=== PATIENT | female | born 1970 | race Caucasian/White ===

== ENCOUNTER → 2017-09-29 17:51 | Outpatient (CLI) | payer OTHER, SELFPAY ==
--- NOTE | 2017-09-29 17:50 | RAD_ITS ---
STUDY: X-RAY CHEST REASON FOR EXAM: Female, 46 years old. Cough TECHNIQUE: Frontal and lateral views COMPARISON: July 12, 2011 FINDINGS: The lungs are clear and expanded. There is no demonstrated pleural abnormality. Normal size heart. Normal mediastinum and vinh. Normal visualized pulmonary arteries. Normal visualized aortic arch and descending thoracic aorta. Normal visualized thoracic spine. Normal visualized ribs, clavicles, and shoulders. There is no demonstrated abnormality of the visualized soft tissue structures of the upper abdomen. RAD/Chest PA and Lateral IMPRESSION: Normal x-ray examination of the chest. Electronically Signed: John Hickey DO at 18:11 EST Tel [phone], Service support ,
== END ==
PROVIDERS: Family Provider Family Medicine; PCP Family Medicine; Visit Provider Family Medicine
DX: R05 Cough (principal)
CPT/HCPCS: 71046

== ENCOUNTER 2018-01-12 05:36 | Day surgery (SDC) | payer OTHER, SELFPAY ==
[2018-01-06 11:25] LABS: Internal QC Validated? YES +Cl - CLEAR BKGD
[2018-01-06 11:27] LABS: Hematocrit 35.4 % (37-47); Hemoglobin 10.9 g/dl (12.0-15.0); Mean Corp Hgb Conc 30.8 g/gl (32-36); Mean Corpuscular Hgb 23.9 pg (27.0-32.0); Mean Corpuscular Volume 77.5 fL (81-99); Mean Platelet Vol. 11.5 fl (6.2-12.0); Platelet Count 282 K/mm3 (150-450); RBC Distribution Width CV 17.4 % (11.6-14.6); Red Blood Count 4.57 M/mm3 (4.2-5.4); White Blood Count 7.8 K/mm3 (4.4-11.0)
[2018-01-06 11:30] LABS: Pregnancy, Urine Negative Negative
[2018-01-06 11:34] LABS: Scan Indicated on CBC? Y/N NO
[2018-01-12] VITALS (19 sets, daily range): BP systolic 79–116; BP diastolic 48–63; PULSE 56–66; RESP 14–18; TEMP 36–37; O2SAT 87–100; BMI 33.4
--- NOTE | 2018-01-12 | HYST_PTH ---
PATIENT: FISH VELASQUEZ LOC: [facility] [place] U#:[id number] AGE/SX: 47/F ROOM: RE01/12/[address]: Dr. Celia Kim MD : 1970 BED: DIS: 01/13/2018 SPEC #: [id number] RECD: 01/12/18 13:31 STATUS: EBONY STEVE #: [id number] JENNIFFER: 01/12/18 00:[address]: Celia Kim DEPT: SURGICAL PATHOLOGY RECD BY: Jesse Campo ENTERED: 01/12/18 13:31 SP TYPE: HYSTERECT OTHR DR: Dr. Aria Pina DO Tissues: Uterus, NOS Procedures: Surgery Specimen Level V HEADER OPERATION: Hysterectomy, lap assisted vaginal, bilateral salpingectomy PRE-OP DIAGNOSIS: Intramural uterine fibroid; menorrhagia; failed endometrial ablation TISSUE SUBMITTED: Cervix, uterus and bilateral tubes MICROSCOPIC DIAGNOSIS Cervix, uterus and bilateral fallopian tubes, vaginal hysterectomy and bilateral salpingectomy: Cervix ? focal cystic changes. Endometrium ? proliferative endometrium. - Focal fibrosis consistent with previous endometrial ablation. Myometrium ? a leiomyoma (10 cm in diameter). Bilateral fallopian tubes - no pathologic diagnosis. SJ:blas 01/13/18 MICROSCOPIC DESCRIPTION Slides are reviewed. GROSS DESCRIPTION Received in fixative is one container labeled with the patient's name and designated uterus, cervix, bilateral tubes. The specimen consists of a previously opened hysterectomy specimen consisting of uterus with cervix and detached pieces of bilateral fallopian tubes. The uterus with cervix and a small detached piece of nodular tissue weighs in aggregate 654 gm. The uterus with cervix measures 15 x 15 x 8 cm. The serosal surface is faye, glistening with numerous instrumentation roy. The uterus is distorted because of the presence of nodular mass and cannot be oriented as of anterior and posterior surface. The ectocervical mucosa is unremarkable. The shape of external os cannot be determined due to previously opened nature of the specimen. The endocervical canal measures 4 cm in length and the endocervical mucosa is faye, glistening and unremarkable. The endometrial cavity is compressed to one side measures 5 cm in length and 3 cm in width. Sections of the uterine wall reveal a large nodular mass at the fundus measuring 10 cm in diameter. Sections of this mass reveal faye whorled cut surfaces without areas of hemorrhage, necrosis or cystic degeneration. The uninvolved uterine wall measures up to 3.5 cm in thickness. A smaller detached piece of nodular tissue measures 3 x 3 x 1 cm. It appears to be a portion of the larger nodular mass. The fallopian tubes are not identified as right or left. One of the fallopian tubes measure 5 cm in length and 0.5 cm in diameter. The fimbrial end is identified. Sections reveal unremarkable cut surfaces. The second fallopian tube measures 1.5 cm in length and 0.5 cm in diameter. The fimbrial end is identified. Sections do not reveal any mass lesion. Senior Technologist sections are submitted in 11 cassettes as follows: 1 & 2 - cervix, 3-6 - uterine wall including endometrium, 7-9 ? nodular mass, 10 ? one fallopian tube, 11 ? other fallopian tube, entirely submitted. / CYNTHIA:blas 01/12/18 TC:1 CPT: 75622
[2018-01-12 06:00] LABS: Internal QC Validated? YES +Cl - CLEAR BKGD; Pregnancy, Urine Negative Negative
[2018-01-12] MEDS: Phenazopyridine 95 MG Tablet 190 MG PO (06:31)
[2018-01-12] MEDS: Gabapentin 600 MG Tablet PO (06:32)
[2018-01-12] MEDS: Lubricating Jelly 60 GM Tube 30 GM TOPICAL (06:59)
[2018-01-12] MEDS: Celecoxib 200 MG Capsule 400 MG PO (07:15)
[2018-01-12] MEDS: Acetaminophen 500 MG Tablet 1000 MG PO ×3 (07:15→21:37)
[2018-01-12] MEDS: Clindamycin 900 MG/50 ML BAG 75 MG IV (07:44)
[2018-01-12] MEDS: Bupivacaine Mpf 0.5% 30 ML VIAL (07:54)
[2018-01-12] MEDS: Ketorolac 30 MG/ML Syringe IV ×3 (10:15→23:30)
--- NOTE | 2018-01-12 10:25 | OP.PCM_ITS ---
Report of Operation Date of Procedure: 01/12/18 Pre-Operative Diagnosis: menorrhagia, intramural uterine fibroid, chronic blood loss fe def. anemia Post-Operative Diagnosis: same Surgery/Procedure Performed:: LAVH, bilateral salpingectomy, USLF and cystoscopy Description of Surgical Findings:: very enlarged boggy 682 gm uterus, normal cervix and vagina, normal ovaries, tubes with evidence of previous tubal supervisor force adjustment: Roxana Jaramillo Type of Anesthesia:: General Anesthesiologist: Natalie Hardwick Special Medications: benedryl IV Specimen's removed: uterus, cerivix and tubes Drains: melgar Estimated Blood Loss (mL): 750cc Fluids Replaced: 1500cc LR Description of Procedure: The patient was taken to the operating room where she was prepped and draped in the normal sterile fashion in the dorsal lithotomy position. Her arms were tucked bilaterally and padded. She is placed in a neurologically safe and neutral position. A weighted speculum was placed in the vagina and the anterior lip of the cervix was grasped with a tenaculum clamp. The Kanika uterine manipulator was placed in the remainder the vaginal instruments were removed. A Melgar catheter was placed to straight drain. Attention was turned to the abdomen. All port sites were infiltrated with 0.5% Marcaine before skin incisions were made. A 5 mm intraumbilical incision was made. The anterior abdominal wall was tented up with 2 towel clamps while a 5 mm blade less trocar and sleeve were inserted with the interview trocar without difficulty.. Intraperitoneal placement was confirmed with the laparoscope. The pneumoperitoneum was created and the underlying abdominal contents were intact. The patient was placed in Trendelenburg. 5mm right and left lower quadrant ports were placed under direct visualization lateral to the inferior epigastric vessels. The bowel was swept away and the above findings were noted. It could not be manipulated due to its heaviness and width. We placed another left lateral trocar under direct visualization and used a tenaculum to help manipulate the uterus. We used a 5 mm balloon port in the umbilical incision to help seal the pneumoperitoneum. The left ovary and utero-ovarian ligament cannot be well visualized due to the uterus laying on top of the ovary and difficulty with manipulation. However, the right ovary and utero-ovarian ligament could be accessed. The right ligament was clamped sealed and transected with the LigaSure device the right utero-ovarian ligament was clamped sealed and transected with the LigaSure device and hemostasis was noted. Lateral flap was dissected down somewhat with the LigaSure device and the decision was made to try to remove the rest the uterus vaginally and if we are unable to proceed that way we have to convert to abdominal hysterectomy. The vaginal epithelium around the cervix was injected with 1% Xylocaine with dilute epinephrine solution. An incision was made around the entire cervix and the vaginal epithelium was dissected back with blunt sharp dissection. The anterior cul-de-sac was entered sharply and the posterior cul-de-sac was entered sharply. The posterior TM was secured to the posterior vaginal cuff. Uterosacral ligaments were clamped, transected and suture ligated. The lower portion of the cardinal ligaments was clamped, transected and suture ligated. The rest of the cardinal ligaments containing the peritoneum and the uterine arteries were clamped, transected and suture ligated. The right side I was able to reach my finger around and clamped the remaining portion of the broad ligament any clamp and the uterus was free from the right pelvic sidewall. This pedicle was suture ligated. Point the left utero-ovarian ligament with the left pedicle. Decision was made to bivalve the uterus. Most of the blood loss came from backbleeding during the vaginal hysterectomy portion of the galdino. The uterus was very large and boggy. The uterus was bivalved up to the fundus at which point the site was brought out through the vagina and then we are able to bring the fundus of the uterus out and bring the entire uterus out to the utero-ovarian ligament on the left side. It was then clamped, transected and suture-ligated and excellent hemostasis of the pedicles was noted. There is some bleeding from the vaginal cuff. Decision was then made to proceed with the uterosacral ligament fixation. The bowel was packed away and the Breisky retractors were used to retract the abdominal contents and rectum. Uterosacral ligament was identified and grasped with an Allis clamp. PDS suture was placed through the anterior vaginal cuff through the ligament and through the posterior vaginal cuff in the right vaginal corner. 2 O Prolene suture was placed under the vaginal cuff just medial to the PDS suture but not through the entire vaginal epithelium was then placed through the uterosacral ligament slightly more cephalad than the previous stitch and then out through the posterior vaginal cuff but again was left epithelium so was not through the full-thickness. Another 2-0 PDS suture was placed through the more midline portion of the vaginal cuff through the most superior portion of the uterosacral ligament that I could access to the posterior vaginal cuff near the midline. The same procedure was performed on the contralateral side. A cystoscopy was then performed. Both ureteral jets were identified both with and without tension on the uterosacral ligament fixation sutures. The bladder was intact and no abnormalities were noted. Melgar catheter was replaced and the uterosacral ligament fixation sutures were tied down. Some [id number] interrupted sutures were used to cover over the Prolene sutures and to close the midline of the vaginal cuff. Excellent support was noted. There is no significant cystocele at this time the decision was made that a anterior repair would not be indicated at this time. Attention was turned back to the abdomen and the pneumoperitoneum was re-created. The pedicles were all intact and hemostatic. The Melgar was left to straight drain. The vaginal sweep was completed by me. All sponge lap and needle counts were correct. Patient was awakened and taken to theher recovery room in stable condition. Grafts/Implants Used: none - Complications none - Admit VTE Documentation VTE Present on Admission: No VTE Mechan Device Prophylaxis: SCD's VTE Pharm Prophylaxis ordered?: Yes
[2018-01-12 13:02] LABS: Hematocrit 29.7 % (37-47); Hemoglobin 8.8 g/dl (12.0-15.0); Mean Corp Hgb Conc 29.6 g/gl (32-36); Mean Corpuscular Hgb 23.3 pg (27.0-32.0); Mean Corpuscular Volume 78.8 fL (81-99); Mean Platelet Vol. 10.7 fl (6.2-12.0); Platelet Count 237 K/mm3 (150-450); RBC Distribution Width CV 16.9 % (11.6-14.6); RBC Distribution Width SD 47.1 fl (35.1-43.9); Red Blood Count 3.77 M/mm3 (4.2-5.4); White Blood Count 10.8 K/mm3 (4.4-11.0)
[2018-01-12 13:04] LABS: Scan Indicated on CBC? Y/N NO
[2018-01-12] MEDS: Lactated Ringers 1,000 ML 100 ML IV ×2 (13:48→21:41)
[2018-01-12] MEDS: Senna/Docusate Sodium 1 Tablet PO (21:37)
[2018-01-12] MEDS: Docusate Sodium 100 MG Capsule PO (21:37)
[2018-01-12] MEDS: Pantoprazole Sodium 40 MG Tablet PO (21:37)
[2018-01-12] MEDS: 0.9% NaCl Peripheral Flush Adult/Peds IV (23:30)
[2018-01-13 02:55] VITALS: BP 92/51; PULSE 59; RESP 18; TEMP 36.9; O2SAT 97
[2018-01-13 04:48] VITALS: BP 94/52; PULSE 54
[2018-01-13] MEDS: 0.9% NaCl Peripheral Flush Adult/Peds IV (05:10)
[2018-01-13] MEDS: Ketorolac 30 MG/ML Syringe IV (05:11)
[2018-01-13] MEDS: Acetaminophen 500 MG Tablet 1000 MG PO (05:17)
[2018-01-13] MEDS: Lactated Ringers 1,000 ML 100 ML IV (05:35)
[2018-01-13 06:06] LABS: Hematocrit 24.4 % (37-47); Hemoglobin 7.2 g/dl (12.0-15.0); Mean Corp Hgb Conc 29.5 g/gl (32-36); Mean Corpuscular Hgb 23.5 pg (27.0-32.0); Mean Corpuscular Volume 79.5 fL (81-99); Mean Platelet Vol. 11.1 fl (6.2-12.0); Platelet Count 216 K/mm3 (150-450); RBC Distribution Width SD 47.3 fl (35.1-43.9); Red Blood Count 3.07 M/mm3 (4.2-5.4); White Blood Count 9.4 K/mm3 (4.4-11.0)
[2018-01-13 06:11] LABS: Scan Indicated on CBC? Y/N NO
[2018-01-13 07:22] VITALS: O2SAT 98
--- NOTE | 2018-01-13 07:38 | PCM.PN.OB ---
Subjective: Pain well controlled. No nausea or vomiting. No lightheadedness, shortness of breath, or chest pain. Tolerating regular diet. Has not been up to urinate yet this morning. - Physical Exam General: Alert, Cooperative, No apparent distress Abdomen: Soft, Non-Distended, Tender - Appropriately Extremities: No edema Skin: Incision - Incisions are clean dry and intact with skin glue Vital Signs Temp Pulse Resp BP Pulse Ox 98.4 F 54 L 18 94/52 L 97 01/13/18 02:55 01/13/18 04:48 01/13/18 02:55 01/13/18 04:48 01/13/18 02:55 Oxygen Flow Rate (L/min) 2 Oxygen Delivery Method Room Air Weight: 96.9 kg Body Mass Index (BMI) 33.4 Intake and Output for Last 24 Hours 01/11/18 01/12/18 01/13/18 23:59 23:59 23:59 Intake Total 5186 / 5186 1681 / 1681 Output Total 3130 / 3130 700 / 700 Balance 2055 / 2055 981 / 981 Laboratory Tests Past 24 Hrs 01/12/18 01/13/18 12:50 05:43 WBC 10.8 9.4 RBC 3.77 L 3.07 L Hgb 8.8 L 7.2 L Hct 29.7 L 24.4 L MCV 78.8 L 79.5 L MCH 23.3 L 23.5 L MCHC 29.6 L 29.5 L RDW 16.9 H 17.0 H RDW Differential 47.1 H 47.3 H Plt Count 237 216 MPV 10.7 11.1 Medical Necessity - Tobacco Use Smoking Status: Current every day smoker Assessment/Plan Postoperative day #1 status post laparoscopic-assisted vaginal hysterectomy with bilateral salpingectomy and uterosacral ligament fixation Patient is acutely anemic superimposed on chronic anemia. Anemia is appropriate for blood loss during surgery. Patient is tolerating it well. I discussed with her the above average blood loss during surgery due to the large boggy nature of her uterus and technical difficulty of her surgery. I discussed with her I not clinically concerned with any ongoing postoperative bleeding at this time. However, to be conservative we will recheck a blood count at 11 AM before she is discharged home. If her blood count is stable she will be discharged home to continue oral supplements for her anemia and with routine postoperative pain medication prescriptions. Understanding and agreement with plan. Operatively she is doing very well. May continue regular diet. Voiding trial this morning. Urine output is adequate and vital signs are stable.
--- NOTE | 2018-01-13 07:44 | PCM.DC.VHY ---
Discharge Diet: No Restrictions Discharge Activity: Return to Normal Activity, May Not Drive - while taking narcotic pain medications., May Shower May resume sexual activity in: 6-8 weeks Call your doctor if your incision/area has: Continuous Slow Oozing, Sudden Increased Bleeding, Increased Pain/ Swelling, Increased Redness, Foul Smelling Discharge Call your doctor if you observe: Fever of 101 or Higher, Inability to urinate, Inability to have a bowel movement, Using more than one pad per hour Cleanse incision/area with: Soap & Water, - - Your incisions have skin glue, it can get wet. Leave on for 10-14 days Allergies/Adverse Reactions: Allergies erythromycin base Allergy (Verified 01/05/18 13:13) Shortness of breath Penicillins Allergy (Verified 01/05/18 13:13) Shortness of breath iodine Adverse Reaction (Verified 01/05/18 13:13) Hives Medications to take at Discharge Sertraline HCl [Zoloft] 100 mg PO DAILY 12/17/14 Omeprazole 40 mg PO BID 01/05/18 Ibuprofen [Motrin] 800 mg PO TID PRN PRN #40 tab 01/13/18 Oxycodone HCl/Acetaminophen [Percocet 5-325] 1 - 2 tablet PO Q8 PRN 7 Days #28 tablet 01/13/18 The following prescriptions were given: Ibuprofen [Motrin] 800 mg PO TID PRN PRN #40 tab PRN Reason: Pain Oxycodone HCl/Acetaminophen [Percocet 5-325] 1 - 2 tablet PO Q8 PRN 7 Days #28 tablet PRN Reason: Moderate-Severe pain Primary Care Physician: Aria Pina DO [Primary Care Provider] -
[2018-01-13 09:40] VITALS: BP 85/50; PULSE 58; RESP 14; TEMP 36.9; O2SAT 100
[2018-01-13] MEDS: Sertraline 100 MG Tablet PO (09:44)
[2018-01-13] MEDS: Docusate Sodium 100 MG Capsule PO (09:44)
[2018-01-13] MEDS: Pantoprazole Sodium 40 MG Tablet PO (09:44)
[2018-01-13] MEDS: Senna/Docusate Sodium 1 Tablet PO (09:44)
[2018-01-13 10:46] LABS: Hematocrit 23.7 % (37-47); Hemoglobin 7.2 g/dl (12.0-15.0); Mean Corp Hgb Conc 30.4 g/gl (32-36); Mean Corpuscular Hgb 24.2 pg (27.0-32.0); Mean Corpuscular Volume 79.8 fL (81-99); Mean Platelet Vol. 10.2 fl (6.2-12.0); Platelet Count 201 K/mm3 (150-450); RBC Distribution Width CV 16.9 % (11.6-14.6); RBC Distribution Width SD 47.3 fl (35.1-43.9); Red Blood Count 2.97 M/mm3 (4.2-5.4); Scan Indicated on CBC? Y/N NO; White Blood Count 8.8 K/mm3 (4.4-11.0)
[2018-01-13 11:25] VITALS: BP 103/60; PULSE 62; RESP 14; TEMP 36.8; O2SAT 100
== END 2018-01-13 11:35 | disposition home or self-care (01) ==
LOC: SDC 05:37 → AC 05:37 → MS2 09:50
PROVIDERS: Family Provider Family Medicine; PCP Family Medicine; Visit Provider Obstetrics & Gynecology
PROC: 0UT9FZZ Resection of Uterus, Via Natural or Artificial Opening With Percutaneous Endoscopic Assistance (ICD-10-PCS; CPT 57283; principal; 2018-01-12 07:05)
DX: D25.1 Intramural leiomyoma of uterus (principal); N81.4 Uterovaginal prolapse, unspecified; N92.0 Excessive and frequent menstruation with regular cycle; D50.9 Iron deficiency anemia, unspecified; K22.70 Barrett's esophagus without dysplasia; F32.9 Major depressive disorder, single episode, unspecified; F41.9 Anxiety disorder, unspecified; F17.210 Nicotine dependence, cigarettes, uncomplicated; Z79.899 Other long term (current) drug therapy; Z87.442 Personal history of urinary calculi
CPT/HCPCS: 57283; 58554; 36415; 81025; 85027; 86850; 86900; 88307; J7120; A4216; J2405

== ENCOUNTER → 2018-02-07 14:56 | Outpatient (CLI) | payer OTHER, SELFPAY ==
[2018-02-07 17:56] LABS: Absolute Lymphocyte Count 1.93 X10^3/ul (0.83-4.51); Absolute Neutrophil Count 3.6 X10^3/uL (2.0-7.7); Basophil# 0.02 X10^3/uL; Basophil% 0.3 % (0-1); Eosinophil# 0.18 X10^3/uL; Eosinophils% 2.9 % (0-5); Hematocrit 32.7 % (37-47); Lymphocyte # 1.93 X10^3/ul (4.0); Lymphocyte % 31.3 % (19-41); Mean Corp Hgb Conc 30.6 g/gl (32-36); Mean Corpuscular Hgb 24.2 pg (27.0-32.0); Mean Corpuscular Volume 79.2 fL (81-99); Mean Platelet Vol. 10.8 fl (6.2-12.0); Monocyte% 6.5 % (0-10); Neutrophil # 3.61 X10^3/uL (2.7-7.7); Neutrophil % 58.7 % (47-70); Platelet Count 301 K/mm3 (150-450); RBC Distribution Width CV 17.3 % (11.6-14.6); RBC Distribution Width SD 49.3 fl (35.1-43.9); Red Blood Count 4.13 M/mm3 (4.2-5.4); White Blood Count 6.2 K/mm3 (4.4-11.0)
[2018-02-07 18:01] LABS: Anion Gap 8 (5-15); BUN 12 mg/dL (7-18); BUN/Creat Ratio 14.5 RATIO (10-20); Calcium,Total 8.8 mg/dL (8.5-10.1); Chloride 108 mmol/L (98-107); Creatinine, Serum 0.83 mg/dL (0.55-1.02); EST Glomerular Filtration Rate 79 mL/min (>60); Est Glom Filt Rate - Afr Amer 96 mL/min (>60); Glucose 89 mg/dL (74-106); Potassium 3.9 mmol/L (3.5-5.1); Sodium Level 142 mmol/L (136-145)
[2018-02-07 18:04] LABS: POSITIVE COUNT NO; POSITIVE DIFFERENTIAL NO; POSITIVE MORPHOLOGY NO
[2018-02-08 08:44] LABS: Vitamin D,25 Hydroxy 21.6 ng/mL (29.95-100.01)
== END ==
PROVIDERS: Family Provider Family Medicine; PCP Family Medicine; Visit Provider Family Medicine
DX: K21.0 Gastro-esophageal reflux disease with esophagitis (principal); F32.9 Major depressive disorder, single episode, unspecified; E55.9 Vitamin D deficiency, unspecified
CPT/HCPCS: 36415; 80048; 82306; 85025

== ENCOUNTER → 2018-02-13 15:10 | Outpatient (CLI) | payer OTHER, SELFPAY ==
[2018-02-13 17:50] LABS: D-Dimer Quantitative (DVT/PE) 0.31 FEU/ug/m (0.27-0.49)
[2018-02-13 18:03] LABS: AST(SGOT) 14 U/L (15-37); Alanine Aminotransfer ALT/SGPT 23 U/L (13-56); Albumin, Serum 3.5 g/dL (3.2-5.0); Alkaline Phosphatase 69 U/L (45-117); Anion Gap 11 (5-15); BUN 15 mg/dL (7-18); Calcium,Total 8.7 mg/dL (8.5-10.1); Chloride 106 mmol/L (98-107); Creatinine, Serum 0.88 mg/dL (0.55-1.02); EST Glomerular Filtration Rate 74 mL/min (>60); Est Glom Filt Rate - Afr Amer 89 mL/min (>60); Globulin 3.4 g/dL (2.2-4.2); Glucose 119 mg/dL (74-106); Potassium 3.6 mmol/L (3.5-5.1); Protein, Total 6.9 g/dL (6.4-8.2); Sodium Level 140 mmol/L (136-145)
[2018-02-13 18:06] LABS: BNP,B-Type NATRIURETIC PEPTIDE 151.7 pg/mL (0-100)
[2018-02-13 18:16] LABS: Color, Urine Yellow (Yellow); Glucose, Dipstick Normal (Normal); Ketone-Dipstick Negative (Negative); Leukocyte Esterase-Dipstick 25 /ul (Negative); Nitrite-Dipstick Negative (Negative); Occult Blood-Urine Negative /ul (Negative); Protein-Dipstick Negative (Negative); Specific Gravity, Urine 1.005 (1.002-1.030); Urine Bilirubin Dipstick Negative (Negative); Urine Clarity Clear (Clear); Urine Urobilinogen Normal (Normal); Urine pH 6.5 (5.0 - 8.0)
== END ==
PROVIDERS: Visit Provider Family Medicine
DX: R07.9 Chest pain, unspecified (principal); R60.9 Edema, unspecified; R10.9 Unspecified abdominal pain
CPT/HCPCS: 36415; 80053; 81002; 83880; 84443; 85379

== ENCOUNTER → 2018-02-16 08:48 | Outpatient (CLI) | payer OTHER, SELFPAY ==
--- NOTE | 2018-02-16 08:50 | ECHOCS_ITS ---
Reason For Study: CHEST PAIN Procedure This was a 2D Doppler, Color Flow transthoracic echocardiogram. Contrast injection was performed. Exam performed in department. Left Ventricle Normal LV size. Left ventricular systolic function is normal. The estimated ejection fraction is 55 %. No evidence for diastolic dysfunction. No regional wall motion abnormalities noted. Right Ventricle Normal RV size. Normal systolic function. Atria Normal left atrium. Normal right atrium. Mitral Valve Normal mitral valve. Tricuspid Valve Normal tricuspid valve. Mild (1+) tricuspid valve insufficiency. Pulmonary artery systolic pressure is 29 mmHg. Aortic Valve Normal aortic valve. Great Vessels Normal aortic root. The pulmonary artery is normal size. Normal inferior vena cava. Pericardium/Pleural No pericardial effusion. Medication 22 gauge I.V. with prn adaptor inserted into right arm. Diluted definity 2ml given slow IV push to enhance endocardial definition. MMode/2D Measurements & Calculations LVIDd: 5.2 cm IVSd: 0.87 cm Ao root diam: 3.9 cm LVIDs: 3.1 cm LVPWd: 0.97 cm RVDd: 4.1 cm FS: 40.6 % LAV(MOD-bp): 67.4 ml EDV(MOD-sp4): 107.8 ml EDV(MOD-sp2): 103.8 ml LAV(MOD-bp) Indexed: 32.9 ml/m2 ESV(MOD-sp4): 30.6 ml EF(MOD-sp2): 66.4 % LAV(MOD-sp2): 79.9 ml EF(MOD-sp4): 71.6 % LAV(MOD-sp4): 53.6 ml SV(MOD-sp4): 77.2 ml SV(MOD-sp2): 68.9 ml LA A4 area: 20.1 cm2 RA A4 area: 19.1 cm2 Time Measurements MV dec time: 0.23 sec Doppler Measurements & Calculations MV E max nathaniel: 72.3 cm/sec Lat Peak E' Nathaniel: 3.2 cm/sec Med Peak E' Nathaniel: 2.4 cm/sec MV A max nathaniel: 37.3 cm/sec E/E' lat: 22.9 E/E' med: 30.3 MV E/A: 1.9 Ao V2 max: 132.5 cm/sec LV V1 max: 102.8 cm/sec PA V2 max: 88.4 cm/sec Ao max P.0 mmHg LV V1 max P.2 mmHg PI end-d nathaniel: 85.9 cm/sec TR max nathaniel: 258.5 cm/sec TR max P.8 mmHg Interpretation Summary Normal LV size. Left ventricular systolic function is normal. The estimated ejection fraction is 55 %. No evidence for diastolic dysfunction. Mild (1+) tricuspid valve insufficiency. Contrast injection was performed. Ordering Physician: Jaycob Mays Referring Physician: Jaycob Mays Performed By: Shraddha Gandara, JEROME, RVT
== END ==
PROVIDERS: Family Provider Family Medicine; PCP Family Medicine; Visit Provider Family Medicine
DX: R07.9 Chest pain, unspecified (principal); R60.9 Edema, unspecified
CPT/HCPCS: 93306; Q9957; A4216; C8929

== ENCOUNTER 2018-05-31 08:09 | Day surgery (SDC) | payer OTHER, SELFPAY ==
--- NOTE | 2018-05-31 | GASB_PTH ---
PATIENT: FISH VELASQUEZ LOC: EN U#:[id number] AGE/SX: 47/F ROOM: RE05/31/[address]: Dr. Luann Ibarra MD : 1970 BED: DIS: 05/31/2018 SPEC #: [id number] RECD: 05/31/18 13:25 STATUS: EBONY WILSON #: [id number] JENNIFFER: 05/31/18 00:[address]: Luann Ibarra DEPT: SURGICAL PATHOLOGY RECD BY: Jesse Campo ENTERED: 05/31/18 13:25 SP TYPE: Gastric Bx OTHR DR: Dr. Aria Pina DO Tissues: A - Gastric mucous membrane B - Gastric mucous membrane C - Gastric mucous membrane D - Gastric mucous membrane Procedures: Surgery Specimen Level IV HEADER OPER[place] [place] PRE[place] DIAGNOSIS: GERD, Dietrich's esophagus TISSUE SUBMITTED: A - Antral biopsy for histo and H. pylori, B - Gastric polyp biopsy, C - Gastric polyp #2, D - GE junction biopsy MICROSCOPIC DIAGNOSIS A. Gastric antrum, biopsy: Mild chronic gastritis. B. Gastric polyp #1, biopsy: Fragments of fundic gland polyp. C. Gastric polyp #2, biopsy: Fragments of fundic gland polyp. D. Gastroesophageal junction, biopsy: Mild chronic inflammation. No evidence of intestinal metaplasia. AM:blas 06/01/18 COMMENT A. The results of immunohistochemistry for Helicobacter pylori will be reported separately ([id number]). MICROSCOPIC DESCRIPTION Slides are reviewed. GROSS DESCRIPTION A - Received in fixative is one container labeled with the patient's name and designated antral biopsy. The specimen consists of one irregular fragment of light faye soft tissue that measures 0.5 x 0.3 x 0.1 cm. The specimen is totally submitted in one cassette. B - Received in fixative is one container labeled with the patient's name and designated gastric polyp. The specimen consists of multiple irregular fragments of light faye soft tissue that in aggregate measure 2.5 x 0.5 x 0.1 cm. The specimen is totally submitted in one cassette. C - Received in fixative is one container labeled with the patient's name and designated gastric polyp #2. The specimen consists of multiple irregular fragments of light faye soft tissue that in aggregate measure 2 x 0.5 x 0.1 cm. The specimen is totally submitted in one cassette. D - Received in fixative is one container labeled with the patient's name and designated GE junction biopsy. The specimen consists of multiple irregular fragments of light faye soft tissue that in aggregate measure 0.5 x 0.3 x 0.1 cm. The specimen is totally submitted in one cassette. / SJ:rg 05/31/18 TC:3 CPT: 77354 x4
--- NOTE | 2018-05-31 | IMM_PTH ---
PATIENT: FISH VELASQUEZ LOC: EN U#:[id number] AGE/SX: 47/F ROOM: RE05/31/[address]: Dr. Luann Ibarra MD : 1970 BED: DIS: 05/31/2018 SPEC #: [id number] RECD: 05/31/18 13:52 STATUS: EBONY REQ #: [id number] JENNIFFER: 05/31/18 00:[address]: Luann Ibarra DEPT: IMMUNOHISTOCHEMISTRY RECD BY: Sadie Schultz ENTERED: 05/31/18 13:52 SP TYPE: IMMUNO OTHR DR: Dr. Aria Pina, DO Tissues: A - Stomach, NOS Procedures: H Pylori (initial) PHYSICIAN & INSTITUTION [place] [id number] SPECIMEN INFORMATION: Tissue Source: A - Antral biopsy Clinical Info: GERD, Dietrich's esophagus Specimen Number: [id number] CPT code: 41064 METHODOLOGY: Deparaffinized sections of prefer/formalin-fixed tissue or PAP/DQ stained slides are incubated with monoclonal/polyclonal antibodies/oligonucleotide probes. Localization is made via biotin free immunoperoxidase method. Appropriate controls are performed and reacted as expected. Results on target cell population are indicated in the following table: RESULTS: ANTIBODY / CLONE RESULT Block A H Pylori (polyclonal) negative These tests were developed and their performance characteristics determined by [facility]. They may not have been cleared or approved by the U.S. Food and Drug Administration. The FDA has determined that such clearance or approval is not necessary. INTERPRETATION: A. Antral biopsy: Negative for Helicobacter pylori organisms. AM:blas 06/01/18
[2018-05-31 08:42] VITALS: BP 125/71; PULSE 81; RESP 16; TEMP 36.5; O2SAT 100; BMI 32.2
[2018-05-31 10:15] VITALS: BP 125/71; BP 89/53; PULSE 63; RESP 16; TEMP 36.6; O2SAT 94
[2018-05-31 10:20] VITALS: BP 125/71; BP 90/48; PULSE 62; RESP 16; O2SAT 94
--- NOTE | 2018-05-31 10:20 | OP.ENDO_ITS ---
Patient Name: Sara Snyder Procedure Date: 05/31/2018 9:45 AM Date of : 1970 Age: 47 Procedure: Upper GI endoscopy Indications: Heartburn, Gastro-esophageal reflux disease, Follow-up of Dietrich's esophagus Providers: Luann Ibarra MD Referring MD: Luann Ibarra MD Medicines: Monitored Anesthesia Care Patient Profile: Patient has symptoms of chronic epigastric abdominal pain, chronic heartburn and chronic nausea. Complications: No immediate complications. Procedure: Pre-Anesthesia Assessment: - Prior to the procedure, a History and Physical was performed, and patient medications and allergies were reviewed. The patient's tolerance of previous anesthesia was also reviewed. The risks and benefits of the procedure and the sedation options and risks were discussed with the patient. All questions were answered, and informed consent was obtained. Prior Anticoagulants: The patient has taken no previous anticoagulant or antiplatelet agents. ASA Grade Assessment: II - A patient with mild systemic disease. After reviewing the risks and benefits, the patient was deemed in satisfactory condition to undergo the procedure. After obtaining informed consent, the endoscope was passed under direct vision. Throughout the procedure, the patient's blood pressure, pulse, and oxygen saturations were monitored continuously. The gastroscope was introduced through the mouth, and advanced to the second part of duodenum. The upper GI endoscopy was accomplished without difficulty. The patient tolerated the procedure well. Scope In: 9:52:42 AM Scope Out: 10:06:40 AM Total Procedure Duration Time 0 hours 13 minutes 58 seconds Findings: The first portion of the duodenum and second portion of the duodenum were normal. Mild inflammation was found in the gastric antrum. Biopsies were taken with a cold forceps for Helicobacter pylori testing. Multiple less than 5 mm semi-sessile polyps with no stigmata of recent bleeding were found in the gastric fundus/body. Polypectomy was completed using hot snare on a polyp and cold forceps on another. Resections and retrievals were complete. Localized mildly erythematous mucosa with stigmata of recent bleeding was found at the gastroesophageal junction, about <1cm of area. GEJ at 34 cm. Multiple biopsies were taken with a cold forceps for histology. The esophagus was normal. A small hiatal hernia was present. Impression: - Normal first portion of the duodenum and second portion of the duodenum. - Gastritis. Biopsied. - Multiple gastric polyps. Resected and retrieved. - Erythematous mucosa in the gastroesophageal junction. Biopsied. - Normal esophagus. Recommendation: - Discharge patient to home. - Use Nexium (esomeprazole) 40 mg PO BID. - Await pathology results. - Continue present medications. Procedure Code(s): --- Professional --- 86699, Esophagogastroduodenoscopy, flexible, transoral; with biopsy, single or multiple Diagnosis Code(s): --- Professional --- K31.7, Polyp of stomach and duodenum K29.70, Gastritis, unspecified, without bleeding K22.70, Dietrich's esophagus without dysplasia R12, Heartburn K21.9, Gastro-esophageal reflux disease without esophagitis CPT copyright 2017 [employer]. All rights reserved. The codes documented in this report are preliminary and upon health information coder review may be revised to meet current compliance requirements. MD Luann Carney MD 05/31/2018 10:20:27 AM This report has been signed electronically. Number of Addenda: 0 Note Initiated On: 05/31/2018 9:45 AM
[2018-05-31 10:25] VITALS: BP 125/71; BP 93/57; PULSE 59; RESP 16; O2SAT 96
[2018-05-31 10:30] VITALS: BP 125/71; BP 90/51; PULSE 57; RESP 16; TEMP 36.3; O2SAT 98
[2018-05-31 10:45] VITALS: BP 125/71
== END 2018-05-31 10:52 | disposition home or self-care (01) ==
LOC: EN 08:09 → AC 08:11
PROVIDERS: Family Provider Family Medicine; PCP Family Medicine; Referring Provider Surgery; Visit Provider Surgery
PROC: 0DJ08ZZ Inspection of Upper Intestinal Tract, Via Natural or Artificial Opening Endoscopic (ICD-10-PCS; CPT 43235; principal; 2018-05-31 09:25)
DX: K31.7 Polyp of stomach and duodenum (principal); K22.70 Barrett's esophagus without dysplasia; K44.9 Diaphragmatic hernia without obstruction or gangrene; K29.50 Unspecified chronic gastritis without bleeding; F32.9 Major depressive disorder, single episode, unspecified; F17.200 Nicotine dependence, unspecified, uncomplicated; Z79.899 Other long term (current) drug therapy; Z78.0 Asymptomatic menopausal state; Z86.2 Personal history of diseases of the blood and blood-forming organs and certain disorders involving the immune mechanism; Z98.51 Tubal ligation status; Z90.710 Acquired absence of both cervix and uterus
CPT/HCPCS: 43239; 88305; 88342; J7120

== ENCOUNTER → 2018-06-06 16:13 | Outpatient (CLI) | payer OTHER, SELFPAY ==
--- NOTE | 2018-06-06 16:15 | BI_ITS ---
MAMMOGRAPHY - BILATERAL SCREENING REASON FOR EXAM: Female, 47 years old. Routine annual screening examination. PERTINENT HISTORY: Mother with breast cancer. TECHNIQUE: Digital bilateral breast justin (3D mammographic acquisition) in the CC and MLO projections. 2-D mediolateral oblique (MLO) and craniocaudad (CC) views of both breasts were obtained. CAD: Full Field Digital Mammography with Computer Added Detection was performed. COMPARISON: Comparison is made with prior study dated March 30, 2017 and February 20, 2016. FINDINGS: Breast Composition: There are scattered areas of fibroglandular density. There are no dominant masses or suspicious calcifications. Stable small bilateral axillary lymph nodes. No other significant abnormalities are identified. There has been no significant change since the prior study. BI/SCREENING MAMM (CAD), BILAT IMPRESSION: Stable bilateral screening mammogram. Yearly follow-up mammogram recommended. (A) ASSESSMENT CATEGORY: BIRADS Category 2: Benign. A letter regarding these results will be sent to the patient by the facility within 30 days. Approximately 10% of breast cancers are not detected by mammography. A normal mammogram should not delay biopsy of a clinically suspicious abnormality. [id number] Electronically Signed: Mayur Lopes MD at 10:22 EDT Tel [phone], Service support ,
== END ==
PROVIDERS: Family Provider Family Medicine; PCP Family Medicine; Visit Provider Obstetrics & Gynecology
DX: Z12.31 Encounter for screening mammogram for malignant neoplasm of breast (principal)
CPT/HCPCS: 77063; 77067

== ENCOUNTER → 2018-09-02 10:19 | Outpatient (CLI) | payer OTHER, SELFPAY ==
[2018-09-02 10:58] LABS: Absolute Lymphocyte Count 1.77 X10^3/ul (0.83-4.51); Absolute Neutrophil Count 5.1 X10^3/uL (2.0-7.7); Basophil# 0.02 X10^3/uL; Basophil% 0.3 % (0-1); Eosinophil# 0.26 X10^3/uL; Eosinophils% 3.4 % (0-5); Hematocrit 36.8 % (37-47); Hemoglobin 11.3 g/dl (12.0-15.0); Lymphocyte # 1.77 X10^3/ul (4.0); Lymphocyte % 23.3 % (19-41); Mean Corp Hgb Conc 30.7 g/gl (32-36); Mean Corpuscular Hgb 24.3 pg (27.0-32.0); Mean Corpuscular Volume 79.1 fL (81-99); Mean Platelet Vol. 11.5 fl (6.2-12.0); Monocyte# 0.41 X10^3/uL; Monocyte% 5.4 % (0-10); Neutrophil # 5.11 X10^3/uL (2.7-7.7); Neutrophil % 67.2 % (47-70); Platelet Count 245 K/mm3 (150-450); RBC Distribution Width CV 16.3 % (11.6-14.6); RBC Distribution Width SD 46.4 fl (35.1-43.9); Red Blood Count 4.65 M/mm3 (4.2-5.4); White Blood Count 7.6 K/mm3 (4.4-11.0)
[2018-09-02 11:00] LABS: POSITIVE COUNT NO; POSITIVE DIFFERENTIAL NO; POSITIVE MORPHOLOGY NO
[2018-09-02 11:04] LABS: Erythrocyte Sedimentation Rate 15 mm/hr (0-20)
[2018-09-02 11:35] LABS: AST(SGOT) 12 U/L (15-37); Alanine Aminotransfer ALT/SGPT 24 U/L (13-56); Albumin, Serum 3.5 g/dL (3.2-5.0); Alkaline Phosphatase 87 U/L (45-117); Anion Gap 10 (5-15); BUN 14 mg/dL (7-18); BUN/Creat Ratio 16.3 RATIO (10-20); CRP 5.29 mg/L (0.0-3.0); Calcium,Total 8.6 mg/dL (8.5-10.1); Chloride 107 mmol/L (98-107); Cholesterol 192 mg/dL (200); Creatinine, Serum 0.86 mg/dL (0.55-1.02); EST Glomerular Filtration Rate 76 mL/min (>60); Est Glom Filt Rate - Afr Amer 92 mL/min (>60); Free T3 2.5 pg/mL (2.18-3.98); Globulin 3.5 g/dL (2.2-4.2); Glucose 111 mg/dL (74-106); High Density Lipoprotein 38 mg/dL; Magnesium 1.8 mg/dL (1.6-2.6); Potassium 3.8 mmol/L (3.5-5.1); Rheumatoid Factor < 10.0 IU/mL (<15); Sodium Level 141 mmol/L (136-145); T4 Free Direct 0.79 ng/dL (0.76-1.46); Thyroid Stim Hormone (TSH) 1.94 uIU/mL (0.358-3.74); Triglycerides 244 mg/dL; Very Low Density Lipoprotein 49 mg/dL (5-40)
[2018-09-04 09:37] LABS: Vitamin B12 203 pg/mL (211-911); Vitamin D,25 Hydroxy 21.7 ng/mL (29.95-100.01)
[2018-09-04 13:45] LABS: Hemoglobin A1c 6.7 % (4.2-6.3)
[2018-09-05 08:57] LABS: ANTINUCLEAR ANTIBODIES DIRECT Negative (Negative)
== END ==
PROVIDERS: Family Provider Family Medicine; PCP Family Medicine; Referring Provider Family Medicine; Visit Provider Family Medicine
DX: Z00.00 Encounter for general adult medical examination without abnormal findings (principal); R53.83 Other fatigue; R20.2 Paresthesia of skin; M25.50 Pain in unspecified joint; M79.10 Myalgia, unspecified site; E55.9 Vitamin D deficiency, unspecified; R73.01 Impaired fasting glucose; E53.8 Deficiency of other specified B group vitamins; D64.9 Anemia, unspecified; Z51.81 Encounter for therapeutic drug level monitoring
CPT/HCPCS: 36415; 80053; 80061; 82306; 82607; 83036; 83735; 84439; 84443; 84481; 85025; 85652; 86038; 86140; 86200; 86225; 86235; 86431

== ENCOUNTER → 2019-09-11 15:24 | Outpatient (CLI) | payer OTHER, SELFPAY ==
--- NOTE | 2019-09-11 15:29 | BI_ITS ---
MAMMOGRAPHY - BILATERAL SCREENING REASON FOR EXAM: Female, 48 years old. Routine annual screening examination. PERTINENT HISTORY: Mother with breast cancer. History of a prior right ultrasound-guided breast biopsy. TECHNIQUE: Digital bilateral breast kodi (3D mammographic acquisition) in the CC and MLO projections. 2-D mediolateral oblique (MLO) and craniocaudad (CC) views of both breasts were obtained. CAD: Full Field Digital Mammography with Computer Added Detection was performed. COMPARISON: Comparison is made with prior study dated June 06, 2018 and March 30, 2017. FINDINGS: Breast Composition: There are scattered areas of fibroglandular density. There are no dominant masses or suspicious calcifications. A tissue clip marker is seen in the deep inferior slightly medial portion of the right breast. This is seen within a 9.2 mm nodule. The patient has a history of sebaceous cyst at that site. No other significant abnormalities are identified. There has been no significant change since the prior study. BI/SCREEN MAMM (CAD) W/KODI BILAT IMPRESSION: Stable bilateral screening mammogram. Yearly follow-up mammogram recommended. (A) ASSESSMENT CATEGORY: BIRADS Category 2: Benign. A letter regarding these results will be sent to the patient by the facility within 30 days. Approximately 10% of breast cancers are not detected by mammography. A normal mammogram should not delay biopsy of a clinically suspicious abnormality. [id number] Electronically Signed: Mayur Lopes, at 8:27 EST , Service support ,
== END ==
PROVIDERS: PCP Family Medicine; Referring Provider Family Medicine; Visit Provider Family Medicine
DX: Z12.31 Encounter for screening mammogram for malignant neoplasm of breast (principal); Z80.3 Family history of malignant neoplasm of breast
CPT/HCPCS: 77063; 77067

== ENCOUNTER → 2020-03-21 15:09 | Outpatient (CLI) | payer BC, SELFPAY ==
--- NOTE | 2020-03-21 15:15 | RAD_ITS ---
STUDY: X-RAY CHEST REASON FOR EXAM: Female, 49 years old. Posterior pain near scapula that radiates toward front of chest, family hx (mom) of breast cancer TECHNIQUE: PA and lateral views of the chest. COMPARISON: Comparison is made with prior study dated 09/29/2017. FINDINGS: Hyperinflation. Scattered calcified granulomas. The lungs are clear. There is no demonstrated pleural abnormality. Normal size heart. Normal mediastinum and vinh. Normal visualized pulmonary arteries. Normal visualized aortic arch and descending thoracic aorta. Normal visualized thoracic spine. Normal visualized ribs, clavicles, and shoulders. There is no demonstrated abnormality of the visualized soft tissue structures of the upper abdomen. RAD/Chest PA and Lateral IMPRESSION: Hyperinflation. Electronically Signed: Mayur Lopes, at 15:37 EDT , Service support ,
--- NOTE | 2020-03-21 15:16 | RAD_ITS ---
STUDY: X-RAY - CERVICAL SPINE REASON FOR EXAM: Female, 49 years old. Posterior pain near scapula that radiates to front of chest, family hx (mom) breast cancer TECHNIQUE: 3 view(s) of the cervical spine were obtained. COMPARISON: None FINDINGS: Normal anterior atlantoaxial articulation. Normal odontoid process. There is straightening of the normal cervical lordosis. Normal vertebral bodies and endplates. Normal disc space heights. Normal visualized intervertebral neuroforamina. The soft tissue structures are unremarkable. RAD/Cerv Spine 2 or 3 Views IMPRESSION: There is straightening of the normal cervical lordosis. Electronically Signed: Mayur Lopes, at 15:37 EDT , Service support ,
== END ==
PROVIDERS: PCP Family Medicine; Referring Provider Family Medicine; Visit Provider Family Medicine
DX: R07.9 Chest pain, unspecified (principal); M54.2 Cervicalgia
CPT/HCPCS: 71046; 72040

== ENCOUNTER → 2020-07-11 | Outpatient (CLI) | payer OTHER, SELFPAY | END | disposition home or self-care (01) | LOC: LABSPEC 12:08 | PROVIDERS: PCP Family Medicine; Referring Provider Surgery; Visit Provider Surgery | DX: N61.1 Abscess of the breast and nipple (principal) | CPT/HCPCS: 87070; 87075; 87205 ==

== ENCOUNTER → 2020-10-14 07:01 | Outpatient (CLI) | payer OTHER, SELFPAY ==
--- NOTE | 2020-10-14 07:04 | BI_ITS ---
MAMMOGRAPHY - BILATERAL SCREENING REASON FOR EXAM: Female, 49 years old. Routine annual screening examination. PERTINENT HISTORY: Mother with breast cancer. TECHNIQUE: Digital bilateral breast kodi (3D mammographic acquisition) in the CC and MLO projections. 2-D mediolateral oblique (MLO) and craniocaudad (CC) views of both breasts were obtained. CAD: Full Field Digital Mammography with Computer Added Detection was performed. COMPARISON: Comparison is made with prior examination dated 03/11/2020 and 06/06/2018. FINDINGS: Breast Composition: There are scattered areas of fibroglandular density. There are no dominant masses or suspicious calcifications. Once again, a tissue marker is seen in the deep inferior slightly medial aspect of the right breast. The previously seen nodular density has resolved. This corresponded to a sebaceous cyst which was excised in July 2020. No other significant abnormalities are identified. There has been no significant change since the prior study. BI/SCRN MAMM (CAD)W/KODI BILAT IMPRESSION: Stable bilateral screening mammogram. Yearly follow-up mammogram recommended. (A) ASSESSMENT CATEGORY: BIRADS Category 2: Benign. A letter regarding these results will be sent to the patient by the facility within 30 days. Approximately 10% of breast cancers are not detected by mammography. A normal mammogram should not delay biopsy of a clinically suspicious abnormality. [id number] Electronically Signed: Mayur Lopes MD at 8:17 EST , Service support ,
== END ==
PROVIDERS: PCP Family Medicine; Referring Provider Family Medicine; Visit Provider Family Medicine
DX: Z12.31 Encounter for screening mammogram for malignant neoplasm of breast (principal); Z80.3 Family history of malignant neoplasm of breast
CPT/HCPCS: 77063; 77067

== ENCOUNTER 2020-10-15 08:09 | Day surgery (SDC) | payer OTHER, SELFPAY ==
--- NOTE | 2020-07-16 10:00 | HP_ITS ---
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 Is patient in pain?: Yes Allergies Iodine and Iodide Containing Produc Allergy (Mild, Verified 07/11/20 09:25) Hives erythromycin base Allergy (Verified 07/11/20 09:25) Shortness of breath Penicillins Allergy (Verified 07/11/20 09:25) Shortness of breath midazolam [From Versed] Adverse Reaction (Mild, Verified 07/11/20 09:) Nausea/Vom/Diarrhea iodine Adverse Reaction (Verified 07/11/20 09:25) Hives Medications Sertraline HCl [Zoloft] 100 mg PO DAILY 12/17/14 [History Confirmed 07/11/20] Ibuprofen [Motrin] 800 mg PO TID PRN PRN #40 tab 01/13/18 [Rx Confirmed 07/11/20] esomeprazole magnesium 40 mg capsule,delayed release 40 mg PO BID #60 cap 09/04/18 [Rx Confirmed 07/11/20] PFSH Medical History Depression (Acute) GERD (gastroesophageal reflux disease) (Acute) History of Dietrich's esophagus (Acute) Surgical History History of esophagogastroduodenoscopy (EGD) (Acute) S/P colonoscopy (Acute) S/P hysterectomy (Acute) S/P laparoscopic cholecystectomy (Acute) S/P tonsillectomy and adenoidectomy (Acute) Family History Mother Breast cancer Father Diabetes Social History (Updated 07/14/20 @ 11:[address] Luann Ibarra MD) Smoking Status: Current every day smoker alcohol intake: never HPI HPI HPI: FISH VELASQUEZ, is a 49 F who presents to the office today for HPI HPI Surgical H&P: Yes HPI: FISH VELASQUEZ, is a 49 F who presents to the office today for EGD and infected right inferior breast cyst. Patient states she previously had infected cyst last year which her PCP Dr. Pina I&Krishna. Patient did get doxycycline as well as tramadol called in by her PCP. Patient states she had this for about 5 days and has been getting more red and tender. Patient rates the pain as 7/10 denies any drainage has been using some warm compresses at home. Patient does have a history of Dietrich's states she still gets reflux symptoms (epigastric pain, nausea, burning in her esophagus) on the Nexium 40 mg [id number] daily medication. Exam Const General: cooperative, comfortable, no acute distress Cardio Rate: regular rate GI Inspection: non-distended Palpation: soft, no guarding, nontender Skin Other: Inferior right breast near the inframammary fold erythema of 4 x 6 cm area of fluctuance of 2 x 2 cm. Office Procedures Incision and Drainage Procedure performed by: Luann Ibarra Informed consent given: Yes Consent signed: Yes Time out checklist: patient, procedure, site marked/identified, positioning of patient, supplies available, allergies confirmed, team agrees on procedure Time out staff in room: Yes Location: inferior R breast at inframammary fold, erythema 6 x 5cm, 2x2cm fluctuance Anesthesia: local Incision with: #11 blade Drainage quality: purulent Probed cavity: Yes (A good portion of the sebaceous cyst wall was able to be removed ) Culture taken: Yes Lesion: erythema, drainage, fluctuance, induration Hemostasis: pressure Cavity management: irrigated (Did not require packing as there was inferior and superior small incision) Dressing: other (opsite) Patient tolerated procedure: well Complications: No Procedure Time Out Time Out Informed consent given: Yes Consent signed: Yes Time out checklist: patient, procedure, site marked/identified, positioning of patient, supplies available, allergies confirmed, team agrees on procedure Time out staff in room: Yes Time out verified: Yes Time out date: 07/11/20 Time out time: 09:55 Assessment & Plan Problems 1. Dietrich's esophagus K22.70 2. Infected cyst of skin L72.9; L08.9 right inframammary fold Plan Patient tolerated procedure well. We will schedule EGD I have discussed the above with the patient. I have offered the patient EGD for evaluation. I have explained the risks/benefits of the procedure and described the procedure. I have discussed the risks with the patient, including but not limited to: infection, bleeding, perforation of the GI tract requiring emergency surgery, inability to complete the procedure, injury to any internal organs, complications of anesthesia, etc. - the patient understands and agrees to proceed. I have answered all the patient's questions to the patient's satisfaction and the patient has no further questions. Luann Ibarra M.D. Pager: [phone] [facility] [address] [place] [address], [address] [place] [id number] Office: [phone] Orders Orders: Culture, Deep Wound 07/11/20 N61.1 Plan Detail Follow Up We will schedule EGD Coding Level of Care Code Attention Андрей Diagnoses Dietrich's esophagus K22.70 Infected cyst of skin L72.9; L08.9 Comment 13326 COVID (Procedure Consent) Procedure Criteria Procedure Criteria: Yes Elective The surgeon/proceduralist and patient have discussed in detail the risk of exposure to and/or potential harm posed by the COVID-19 virus with having a surgery/procedure at this time versus the risk of? delaying the surgery/procedure. It is not possible to know either the risk of delaying the surgery or procedure or chance of getting an infection with perfect accuracy, but a joint decision was made between the patient and the surgeon/proceduralist ?to proceed at this time with the scheduled surgery/procedure as indicated on the consent form.
[2020-10-15] VITALS (7 sets, daily range): BP systolic 98–111; BP diastolic 53–73; PULSE 55–71; RESP 16–18; TEMP 36.6–36.9; O2SAT 93–99; BMI 34.1
--- NOTE | 2020-10-15 08:45 | H&P.OPEN ---
History of Present Illness Date of Admission: 10/15/20 The patient is a 49 year old F presents for an EGD due to history of Dietrich's. Patient has been on name brand Nexium twice daily but still having symptoms of reflux. Patient also noticed that on Tuesday she threw up and threw up food from Tuesday lunch- question if she could have some gastroparesis. Otherwise patient denies any current abdominal pain. Past Medical/Surgical History - Planned Operation Planned Operative Procedure/s: EGD Date of Operative Procedure: 09/03/20 Permit Signed: Yes S.O.S: No Is This Patient Having a Total Joint: No - Previous Hospitalizations/Surgeries HX Hospitalizations: Yes HX of Surgeries: tubal, tonsils, maninder, colonoscopy, endoscopy, leep procedure, ABLATION. HYSTERECTOMY 01/12/18. EGD 2018 Any Problems With Anesthesia: Yes - n/v, BP DROP W/ HYSTER You/Your Family Experience Fever (Hyperthermia) With Anes: No Cholinesterase deficiency: No - Cardiovascular Hx Chest Pain within Last 2 months: No Hx of Irregular Heartbeat and/or Afib: No Hx Heart Attack: No Hx Congestive Heart Failure: No Hx Rheumatic Fever: No Hx Hypertension: No Hx Internal Defibrillator: No Hx Pacemaker: No Hx Cardiac Catheterization: No Hx Cardiac Surgery/Stents/Etc.: No Hx Stress Test: Yes - 15+ YRS AGO, NORMAL, ECHO 02/16/18 HX Edema: No Hx Pain in Legs when Walking/Leg Cramps: No - Respiratory Chronic Cough: No HX of Shortness of Breath: No - ABLE TO WALK UP 2 FLIGHTS OF STAIRS Hoarseness: No Hx Chronic Obstructive Pulmonary Disease (COPD): No Hx Asthma: No Hx Emphysema: No Hx Sleep Apnea: No CPAP: No BIPAP: No Hx Oxygen Use at Home: No Hx Respiratory Tract Infection/Cold (presently): No Do You Snore Loudly (louder than talking or can be heard): Yes Do You Often Feel Tired/ Fatigued/ Sleepy Dring Daytime?: No Has Anyone Observed You Stop Breathing During Sleep?: No Result (for STOP score): Negative Hx Smoking: Yes Smoking Status: Current every day smoker - Gastrointestinal Hx Gastroesophageal Reflux: Yes Controlled With Meds: Yes - NEXIUM Hx Gastrointestinal Disorders: No Hx Gastrointestinal Bleed: No Hx Ulcer: No Hx Hiatal Hernia: Yes Difficulty Chewing/Swallowing: Yes - BARRETTS ESOPHAGUS Recent Onset of Swallowing Problems: No Special diet followed at home: Yes - GLUTEN FREE Hx Unplanned Weight Loss of 20#: No HX Unplanned Weight Gain of 20#: No - Neurological Hx Seizures: No HX Syncope/Blackout Spells/Unconsciousness: No Hx CVA/Stroke: No Hx Transient Ischemic Attacks (TIA): No Hx Multiple Sclerosis: No Hx Parkinson's Disease: No Hx Head/Neck Injury: No Hx Headaches: No Hx Back Injury/Pain: No Recent Onset of Speech Difficulty: No Restless Legs: No Does patient have nerve stimulator: No - Blood Disorder Hx Leukemia: No Bleeding Tendencies: No Hx Deep Vein Thrombosis: No Hx High Cholesterol: No Blood Transmitted Disease: No Hx Hepatitis: No Hx Cirrhosis: No Hx Anemia: Yes - HX OF Hx Blood Disorders: No - Reproduction : No Is Patient Lactating: No Hx Hysterectomy: Yes Hx Tubal Ligation: Yes Are You Post Menopause: Yes - Genitourinary Hx Renal Disease: No - Musculoskeletal Hx Arthritis: No Hx Rheumatoid Arthritis: No Hx Gout: No Recent Onset of an Orthopedic Problem: No - Endocrine Hx Diabetes: No Thyroid Disease: No Hx Steroid Therapy: No - Psycho/Social Hx Substance Use: No Hx Alcohol Use: Yes - SOCIAL Hx Anxiety: No Hx Depression: Yes - ON MEDICATION Mental Illness: No Hx Dementia: No - Miscellaneous Hx Cancer: No Recent Exposure to Contagious Disease: No Active MRSA: No Hx of C-Diff: No Any Loose Teeth: No Additional information pertinent to anesthesia:: SMOKES 1/2 PPD FOR 5+ YRS Allergies Iodine and Iodide Containing Produc Allergy (Mild, Verified 10/15/20 08:36) Hives ALL INJECTIBLE DYE erythromycin base Allergy (Verified 10/15/20 08:36) Shortness of breath Penicillins Allergy (Verified 10/15/20 08:36) Shortness of breath midazolam [From Versed] Adverse Reaction (Mild, Verified 10/15/20 08:36) Nausea/Vom/Diarrhea iodine Adverse Reaction (Verified 10/15/20 08:36) Hives - Discharge Is Pt Admitted From a Detention, or a Shelter: No Who Could Help: -ROBYN After D/C, Where Do you Plan to Go: Return Home - Physical Exam Vitals/I&O's: Vital Signs Temp Pulse Resp BP Pulse Ox 98.5 F 71 16 111/53 L 99 10/15/20 08:36 10/15/20 08:36 10/15/20 08:36 10/15/20 08:36 10/15/20 08:36 Oxygen Delivery Method Room Air Weight: 217 lb 13.067 oz Body Mass Index (BMI) 34.1 General: Alert, Oriented x3, Cooperative, No apparent distress Lungs: Normal air movement Cardiovascular: Regular rate Abdomen: Soft, Non Tender, Non-Distended Microbiology Past 72 Hours 10/14/20 07:30 Interface Orders SARS-CoV-2 Antigen (Rapid) - Final Laboratory Results 10/15/20 08:12: Sodium Pending, Potassium Pending, Chloride Pending, Carbon Dioxide Pending, Anion Gap Pending, BUN Pending, Creatinine Pending, Est GFR (MDRD) Af Amer Pending, Est GFR (MDRD) Non-Af Pending, BUN/Creatinine Ratio Pending, Glucose Pending, Calcium Pending, Total Bilirubin Pending, AST Pending, ALT Pending, Alkaline Phosphatase Pending, Total Protein Pending, Albumin Pending, Triglycerides Pending, Cholesterol Pending, LDL Cholesterol Pending, VLDL Cholesterol Pending, HDL Cholesterol Pending 10/15/20 08:12: Hemoglobin A1c Pending Assessment/Plan All Active Problems (Last Reviewed 07/11/20 @ 09:24 by Shannon Gore) Infected cyst of skin (Acute) 49-year-old female with Dietrich's for EGD screening Procedure Criteria Procedure Type: Elective COVID Risk Discussion: The surgeon/proceduralist and patient have discussed in detail the risk of exposure to and/or potential harm posed by the COVID-19 virus with having a surgery/procedure at this time versus the risk of delaying the surgery/procedure. It is not possible to know either the risk of delaying the surgery or procedure or chance of getting an infection with perfect accuracy, but a joint decision was made between the patient and the surgeon/proceduralist to proceed at this time with the scheduled surgery/procedure as indicated on the consent form. Surgery Risks - Colonoscopy I discussed with the patient the risks of the procedure: Yes Risks Include but are not Limited To: Risks include but are not limited to: Bleeding, perforation requiring further surgery, inability to complete colonoscopy requiring barium enema.
[2020-10-15] MEDS: Lactated Ringers 1,000 ML 100 ML IV (09:01)
--- NOTE | 2020-10-15 09:30 | IMM_PTH ---
PATIENT: FISH VELASQUEZ LOC: EN U#:[id number] AGE/SX: 49/F ROOM: RE10/15/[address]: Dr. Luann Ibarra MD : 1970 BED: DIS: 10/15/2020 SPEC #: [id number] RECD: 10/15/20 12:37 STATUS: EBONY REQ #: [id number] JENNIFFER: 10/15/20 09:[address]: Luann Ibarra DEPT: IMMUNOHISTOCHEMISTRY RECD BY: Sadie Schultz ENTERED: 10/15/20 12:38 SP TYPE: IMMUNO OTHR DR: Dr. Aria Pina, DO Tissues: A - Stomach, NOS Procedures: H Pylori (initial) PHYSICIAN & INSTITUTION [place] [address] SPECIMEN INFORMATION: Tissue Source: A - Antrum biopsy Clinical Info: History of Dietrich's Specimen Number: [id number] CPT code: 32180 METHODOLOGY: Deparaffinized sections of prefer/formalin-fixed tissue or PAP/DQ stained slides are incubated with monoclonal/polyclonal antibodies/oligonucleotide probes. Localization is made via biotin free immunoperoxidase method. Appropriate controls are performed and reacted as expected. Results on target cell population are indicated in the following table: RESULTS: ANTIBODY / CLONE RESULT Block A H Pylori (polyclonal) negative These tests were developed and their performance characteristics determined by [facility]. They may not have been cleared or approved by the U.S. Food and Drug Administration. The FDA has determined that such clearance or approval is not necessary. The above immunohistochemical/dualISH markers are ordered and reviewed by the Pathologist. INTERPRETATION: A. Antrum, biopsy: Negative for Helicobacter pylori organisms. SJ:blas 10/16/2020
--- NOTE | 2020-10-15 09:30 | EGD_PTH ---
PATIENT: FISH VELASQUEZ LOC: EN U#:[id number] AGE/SX: 49/F ROOM: RE10/15/[address]: Dr. Luann Ibarra MD : 1970 BED: DIS: 10/15/2020 SPEC #: [id number] RECD: 10/15/20 11:04 STATUS: EBONY REPaty #: [id number] JENNIFFER: 10/15/20 09:[address]: Luann Ibarra DEPT: SURGICAL PATHOLOGY RECD BY: Nanda Lomax ENTERED: 10/15/20 11:39 SP TYPE: EGD BIOPSY OT DR: Dr. Aria Pina, DO Tissues: A - Gastric mucous membrane B - Gastric mucous membrane Procedures: Special Stain Group II Surgery Specimen Level IV Alcian Blue/PAS (control) HEADER OPERATION: EGD ([facility] [place]) PRE-OP DIAGNOSIS: History of Dietrich's TISSUE SUBMITTED: A - Antrum biopsy, B - GE junction biopsy MICROSCOPIC DIAGNOSIS A. Antrum, biopsy: Mild gastritis. See microscopic description and comment. B. GE junction, biopsy: Fragments of gastroesophageal mucosa with chronic inflammation. Intestinal metaplasia (goblet cell metaplasia) is not identified. See comment. SJ:blas 10/16/2020 COMMENT A. The results of immunohistochemistry for Helicobacter pylori will be reported separately ([id number]). B. Alcian blue/PAS stain with matched control is used in the evaluation of the specimen. Clinical correlation and appropriate follow up are necessary. MICROSCOPIC DESCRIPTION Slides are reviewed. A. The specimen shows fragments of gastric mucosa with chronic inflammatory cell infiltrates in the lamina propria consisting of lymphocytes and plasma cells, consistent with mild chronic gastritis. GROSS DESCRIPTION A - Received in fixative is one container labeled with the patient's name and designated antrum biopsy. The specimen consists of one irregular fragment of light faye soft tissue that measures 0.4 x 0.3 x 0.1 cm. The specimen is totally submitted in one cassette. B - Received in fixative is one container labeled with the patient's name and designated GE junction biopsy. The specimen consists of multiple irregular fragments of light faye soft tissue that in aggregate measure 0.8 x 0.4 x 0.1 cm. The specimen is totally submitted in one cassette. / CYNTHIA:blas 10/15/20 TC:3 CPT: 21482 x2, 29632
[2020-10-15 09:49] LABS: Hemoglobin A1c 5.5 % (3.8-5.6)
[2020-10-15 09:53] LABS: ALB/GLOB Ratio 1.1 RATIO (0.9-2.4); AST(SGOT) 14 U/L (15-37); Alanine Aminotransfer ALT/SGPT 29 U/L (13-56); Alkaline Phosphatase 84 U/L (45-117); Anion Gap 8 (5-15); BUN 20 mg/dL (7-18); BUN/Creat Ratio 21.4 RATIO (10-20); Calcium,Total 9.1 mg/dL (8.5-10.1); Chloride 105 mmol/L (98-107); Cholesterol 224 mg/dL (200); Creatinine, Serum 0.94 mg/dL (0.55-1.02); EST Glomerular Filtration Rate 68 mL/min (>60); Est Glom Filt Rate - Afr Amer 82 mL/min (>60); Estimated Creatinine Clearance 71.95 ml/min; Globulin 3.7 g/dL (2.2-4.2); Glucose 115 mg/dL (74-106); High Density Lipoprotein 60 mg/dL; Potassium 3.9 mmol/L (3.5-5.1); Protein, Total 7.7 g/dL (6.4-8.2); Sodium Level 139 mmol/L (136-145); Triglycerides 92 mg/dL; Very Low Density Lipoprotein 18 mg/dL (5-40)
--- NOTE | 2020-10-15 11:04 | OP.CCLET_ITS ---
10/15/2020 Aria Pina [address] [place] [address] Re : Upper GI endoscopy procedure for Sara Snyder Dear Dr. Pina This procedure was performed on Thursday, October 15, 2020. My impressions and recommendations are as follows: Impressions : - Z-line irregular, 35 cm from the incisors. Biopsied. - 4 cm hiatal hernia. - Gastritis. Biopsied. - Normal examined duodenum. - Three biopsies were obtained at the gastroesophageal junction. Recommendations : - Await pathology results. - Discharge patient to home. - Resume previous diet. - Use sucralfate tablets 1 gram PO QID. - Repeat upper endoscopy 2-3 years for surveillance. - Continue present medications. My findings are described in the full procedure note, which is enclosed. If I can be of further assistance, please feel free to contact me at Doctor phone number(s): , Work: . Sincerely, MD Luann Carney MD 10/15/2020 9:54:20 AM This report has been signed electronically.
--- NOTE | 2020-10-15 11:04 | OP.EGD_ITS ---
Patient Name: Sara Snyder Procedure Date: 10/15/2020 9:27 AM Date of : 1970 Age: 49 Procedure: Upper GI endoscopy Indications: Screening for Dietrich's esophagus Providers: Luann Ibarra MD Referring MD: Aria Pina Medicines: Monitored Anesthesia Care Patient Profile: This is a 49 year old female. Complications: No immediate complications. Procedure: Pre-Anesthesia Assessment: - Prior to the procedure, a History and Physical was performed, and patient medications and allergies were reviewed. The patient's tolerance of previous anesthesia was also reviewed. The risks and benefits of the procedure and the sedation options and risks were discussed with the patient. All questions were answered, and informed consent was obtained. Prior Anticoagulants: The patient has taken no previous anticoagulant or antiplatelet agents. ASA Grade Assessment: Per anesthesia. After reviewing the risks and benefits, the patient was deemed in satisfactory condition to undergo the procedure. After obtaining informed consent, the endoscope was passed under direct vision. Throughout the procedure, the patient's blood pressure, pulse, and oxygen saturations were monitored continuously. The gastroscope was introduced through the mouth, and advanced to the second part of duodenum. The upper GI endoscopy was accomplished without difficulty. The patient tolerated the procedure well. Scope In: 9:34:19 AM Scope Out: 9:42:28 AM Total Procedure Duration Time 0 hours 8 minutes 9 seconds Findings: The Z-line was irregular and was found 35 cm from the incisors. Biopsies were taken with a cold forceps for histology. Three biopsies were obtained with cold forceps for histology in a targeted manner at the gastroesophageal junction. A 4 cm hiatal hernia was present. Moderate inflammation characterized by erythema was found in the gastric antrum. Biopsies were taken with a cold forceps for histology. Biopsies were taken with a cold forceps for Helicobacter pylori cultures. The examined duodenum was normal. Impression: - Z-line irregular, 35 cm from the incisors. Biopsied. - 4 cm hiatal hernia. - Gastritis. Biopsied. - Normal examined duodenum. - Three biopsies were obtained at the gastroesophageal junction. Recommendation: - Await pathology results. - Discharge patient to home. - Resume previous diet. - Use sucralfate tablets 1 gram PO QID. - Repeat upper endoscopy 2-3 years for surveillance. - Continue present medications. Procedure Code(s): --- Professional --- 50840, PT, Esophagogastroduodenoscopy, flexible, transoral; with biopsy, single or multiple Diagnosis Code(s): --- Professional --- K22.8, Other specified diseases of esophagus K44.9, Diaphragmatic hernia without obstruction or gangrene K29.70, Gastritis, unspecified, without bleeding Z13.810, Encounter for screening for upper gastrointestinal disorder CPT copyright 2017 [employer]. All rights reserved. The codes documented in this report are preliminary and upon interpretative dancer review may be revised to meet current compliance requirements. MD Luann Carney MD 10/15/2020 9:54:20 AM This report has been signed electronically. Number of Addenda: 0 Note Initiated On: 10/15/2020 9:27 AM
== END 2020-10-15 10:17 | disposition home or self-care (01) ==
LOC: EN 08:13 → AC 08:13
PROVIDERS: PCP Family Medicine; Referring Provider Family Medicine; Visit Provider Surgery
PROC: 0DJ08ZZ Inspection of Upper Intestinal Tract, Via Natural or Artificial Opening Endoscopic (ICD-10-PCS; CPT 43235; principal; 2020-10-15 09:25)
DX: Z13.810 Encounter for screening for upper gastrointestinal disorder (principal); K29.70 Gastritis, unspecified, without bleeding; K44.9 Diaphragmatic hernia without obstruction or gangrene; K22.8 Other specified diseases of esophagus; K21.9 Gastro-esophageal reflux disease without esophagitis; F32.9 Major depressive disorder, single episode, unspecified; F17.210 Nicotine dependence, cigarettes, uncomplicated; Z20.822 Contact with and (suspected) exposure to COVID-19
CPT/HCPCS: 43239; 36415; 80053; 80061; 83036; 87426; 88305; 88313; 88342; C9803; J7120; J2405

== ENCOUNTER → 2020-11-14 12:08 | Outpatient (CLI) | payer OTHER, SELFPAY ==
[2020-10-15 08:36] VITALS: BMI 34.1
--- NOTE | 2020-11-14 12:10 | NM_ITS ---
CLINICAL: 49-year-old female with history of abdominal pain and nausea. SEMI-SOLID PHASE 99m Tc SULFUR COLLOID GASTRIC EMPTYING STUDY COMPARISON: None available FINDINGS: The patient was administered 1.0 mCi of 99m Tc sulfur colloid mixed with oatmeal and consumed per os. Image acquisitions in the anterior-posterior projections for a total of 60 minutes. There is prompt visualization of the stomach. There is no gastroesophageal reflux identified. The T ? linear fit was calculated to be 39.25 minutes, (Normal: 12-56 minutes). NM/Gastric Emptying Study IMPRESSION: 1. NORMAL 99m Tc sulfur colloid semi-solid phase (oatmeal) gastric emptying imaging examination. A. There is normal and preserved semi-solid phase gastric emptying compared to normal controls. (Jacque et al, J Nucl Med Tech 38: 186, 2010). Electronically Signed: Evan Pickard DO at 21:09 EDT Tel , Service support ,
== END ==
LOC: NM 12:09
PROVIDERS: PCP Family Medicine; Referring Provider Surgery; Visit Provider Surgery
DX: R10.9 Unspecified abdominal pain (principal); R11.0 Nausea
CPT/HCPCS: 78264; A9541

== ENCOUNTER → 2021-04-24 07:59 | Outpatient (CLI) | payer OTHER, SELFPAY ==
[2020-10-15 08:36] VITALS: BMI 34.1
[2021-04-24 08:21] LABS: Absolute Lymphocyte Count 1.85 X10^3/uL (0.83-4.51); Absolute Neutrophil Count 3.5 X10^3/uL (2.0-7.7); Basophil# 0.03 X10^3/uL; Basophil% 0.5 % (0-1); Eosinophil# 0.15 X10^3/uL; Eosinophils% 2.5 % (0-5); Hematocrit 37.8 % (37-47); Hemoglobin 11.5 g/dL (12.0-15.0); Lymphocyte # 1.85 X10^3/ul (0.83-4.51); Lymphocyte % 31.3 % (19-41); Mean Corp Hgb Conc 30.4 g/dL (32-36); Mean Corpuscular Hgb 24.7 pg (27.0-32.0); Mean Corpuscular Volume 81.3 fL (81-99); Mean Platelet Vol. 10.8 fl (6.2-12.0); Monocyte# 0.35 X10^3/uL; Monocyte% 5.9 % (0-10); NRBC Flagged by Analyzer 0 % (0-5); Neutrophil # 3.52 X10^3/uL (2.7-7.7); Neutrophil % 59.5 % (47-70); Platelet Count 236 K/mm3 (150-450); RBC Distribution Width SD 43.9 fl (35.1-43.9); Red Blood Count 4.65 M/mm3 (4.2-5.4); White Blood Count 5.9 K/mm3 (4.4-11.0)
[2021-04-24 08:31] LABS: Erythrocyte Sedimentation Rate 8 mm/hr (0-30)
[2021-04-24 08:40] LABS: Microalbumin,Random Urine 6.4 mg/L (NO RANGE EST.); Microalbumin:Creatinine Ratio 6.6 mg/g CRE (<30 mg/g CRE)
[2021-04-24 08:48] LABS: Hemoglobin A1c 5.9 % (3.8-5.6)
[2021-04-24 09:03] LABS: ALB/GLOB Ratio 1.1 RATIO (0.9-2.4); AST(SGOT) 8 U/L (15-37); Alanine Aminotransfer ALT/SGPT 24 U/L (13-56); Albumin, Serum 3.8 g/dL (3.2-5.0); Alkaline Phosphatase 85 U/L (45-117); Anion Gap 8 (5-15); BUN 15 mg/dL (7-18); BUN/Creat Ratio 16.4 RATIO (10-20); CRP 3.25 mg/L (0.0-3.0); Calcium,Total 8.9 mg/dL (8.5-10.1); Chloride 106 mmol/L (98-107); Cholesterol 196 mg/dL (200); Creatinine, Serum 0.92 mg/dL (0.55-1.02); EST Glomerular Filtration Rate 70 mL/min (>60); Est Glom Filt Rate - Afr Amer 84 mL/min (>60); Free T3 2.7 pg/mL (2.18-3.98); Globulin 3.6 g/dL (2.2-4.2); Glucose 88 mg/dL (74-106); High Density Lipoprotein 47 mg/dL; Iron 25 ug/dL (50-170); Potassium 3.8 mmol/L (3.5-5.1); Protein, Total 7.4 g/dL (6.4-8.2); Sodium Level 140 mmol/L (136-145); Thyroid Stim Hormone (TSH) 2.45 uIU/mL (0.358-3.74); Triglycerides 141 mg/dL; Very Low Density Lipoprotein 28 mg/dL (5-40)
[2021-04-24 09:18] LABS: Vitamin B12 1700 pg/mL (211-911); Vitamin D,25 Hydroxy 40.2 ng/mL
== END ==
PROVIDERS: PCP Family Medicine; Referring Provider Family Medicine; Visit Provider Family Medicine
DX: E03.9 Hypothyroidism, unspecified (principal); E11.9 Type 2 diabetes mellitus without complications; E78.5 Hyperlipidemia, unspecified; M25.50 Pain in unspecified joint; D64.9 Anemia, unspecified; E55.9 Vitamin D deficiency, unspecified; E53.8 Deficiency of other specified B group vitamins; R53.83 Other fatigue; Z51.81 Encounter for therapeutic drug level monitoring
CPT/HCPCS: 36415; 80053; 80061; 82043; 82306; 82570; 82607; 83036; 83540; 84439; 84443; 84481; 85025; 85652; 86140

== ENCOUNTER 2021-07-13 12:23 | Emergency (ER) | payer OTHER, SELFPAY ==
[2021-07-13 12:23] VITALS: BP 166/107; PULSE 79; RESP 16; TEMP 36.6; O2SAT 98; BMI 32.7
--- NOTE | 2021-07-13 13:10 | CT_ITS ---
INDICATION: diverticulitis EXAMINATION: CT ABDOMEN AND PELVIS WITHOUT CONTRAST - CT Abdomen And Pelvis W/O Contrast Injection TECHNIQUE: Helically acquired images were obtained of the abdomen and pelvis without oral or IV contrast. A radiation dose optimization technique was used for this scan. Oral contrast: None. COMPARISON: None. FINDINGS: LOWER CHEST: Lung bases are clear. LIVER: Homogeneous. No focal mass. GALLBLADDER AND BILIARY TREE: Patient status post cholecystectomy. PANCREAS: No focal cystic or solid mass. SPLEEN: Normal size without focal cystic or solid mass. ADRENAL GLANDS: No nodules. KIDNEYS AND URETERS: There is mild distention of the right renal collecting system. There is no evidence for obstructive lesion. PERITONEUM: No ascites or free air. BOWEL: No evidence of acute appendicitis. No stomach or bowel distension. However, there is mild wall thickening with surrounding inflammatory stranding around a few diverticuli of the sigmoid colon. LYMPH NODES: No enlarged mesenteric or retroperitoneal lymph nodes. VESSELS: Aorta is non-dilated. URINARY BLADDER: Unremarkable. REPRODUCTIVE ORGANS: No pelvic masses. However, uterus and right ovary are not visualized. ABDOMINAL WALL: Minimal fat containing hernia at the umbilicus. Minimal interruption anterior abdominal wall just medial to the right rectus measuring 8 mm. BONES: There is transitional vertebra at lumbosacral junction and degenerative changes lower lumbar spine. CT/Abdomen/Pelvis without Cont IMPRESSION: Findings suggest mild diverticulitis sigmoid colon. Electronically Signed: Jj Petty MD at 14:05 EST Tel , Service support ,
--- NOTE | 2021-07-13 13:10 | EDS_ITS ---
HPI History of Present Illness Chief Complaint: Abd Pain Informant: patient Narrative Narrative: 50-year-old female presents to the emergency room with rectal bleeding. Patient states that yesterday morning she had a normal bowel movement. Then prior to going to scientology she had an episode of diarrhea when she wiped she noticed a small amount of blood on the toilet paper. Then throughout the rest the day and into the evening she had the sensation that she needed to have a bowel movement but when she would go she would have a small dime size clot come out. She then started develop some suprapubic pain like a cramp. She has not had a bowel movement since. No more diarrhea. She had a colonoscopy about 6 years ago at the [facility] and states that that was negative. No rectal pain. No fevers. No known history of diverticulosis or colitis. [facility] Medical History (Updated 07/13/21 @ 14:[address] Olvin Helm DO) Depression GERD (gastroesophageal reflux disease) History of Dietrich's esophagus Home Medications sertraline 100 mg PO DAILY 12/17/14 [History Last Taken 01/11/18] ibuprofen 800 mg PO TID PRN PRN #40 tab 01/13/18 [Rx Last Taken Unknown] esomeprazole magnesium 40 mg capsule,delayed release 40 mg PO BID #60 cap 09/04/18 [Rx Last Taken Unknown] sucralfate 1 gm PO 4X/DAY #120 tab 10/15/20 [Rx Last Taken Unknown] moxifloxacin 400 mg PO DAILY 10 Days #10 tab 07/13/21 [Rx Last Taken Unknown] Allergy/AdvReac Type Severity Reaction Status Date / Time Iodine and Iodide Containing Allergy Mild Hives Verified 07/13/21 12:26 Produc erythromycin base Allergy Shortness Verified 07/13/21 12:26 of breath Penicillins Allergy Shortness Verified 07/13/21 12:26 of breath midazolam [From Versed] AdvReac Mild Nausea/Vom/ Verified 07/13/21 12:26 Diarrhea iodine AdvReac Hives Verified 07/13/21 12:26 Family History Mother Breast cancer Father Diabetes Surgical History History of esophagogastroduodenoscopy (EGD) S/P colonoscopy S/P hysterectomy S/P laparoscopic cholecystectomy S/P tonsillectomy and adenoidectomy Social History (Updated 07/14/20 @ 11:[address] Luann Ibarra MD) Smoking Status: Current every day smoker tobacco type: cigarettes alcohol intake: never ROS ROS ED Constitutional Constitutional ED: Denies chills or weight loss Eyes Eyes: Denies change in vision or diplopia ENT ENT ED: Denies ear pain, rhinorrhea or sore throat Cardiovascular Cardiovascular: Denies chest pain, orthopnea, palpitations or racing heartbeat Respiratory/Chest Respiratory/Chest: Denies cough, dyspnea or orthopnea Gastrointestinal Gastrointestinal: Reports abdominal pain and diarrhea; Denies nausea or vomiting Genitourinary Genitourinary ED: Denies dysuria, hematuria or urinary frequency Musculoskeletal Musculoskeletal: Denies arthralgias or myalgias Integumentary Denies abscess or rash Neurologic Neurologic: Denies headache(s) or weakness Psychiatric Psychiatric: Denies anxiety, depression, suicidal ideation or suicidal thoughts Endocrine Endocrinology: Denies polydipsia, polyphagia or polyuria Allergic/Immunologic Allergic/Immunologic ED: Denies mouth swelling, tongue swelling or urticaria EXAM Physical Exam Const Vital Signs: 07/13/21 12:23 Temperature 97.8 F Temperature Source Temporal Pulse Rate 79 Respiratory Rate 16 Blood Pressure 166/107 H Blood Pressure Mean 126 Pulse Ox 98 Oxygen Delivery Method Room Air Positive well nourished and well developed General Appearance ED: well developed HEENT Reports normocephalic, head/scalp atraumatic, TM's clear and moist mucous membranes Negative for trauma Tympanic Membrane ED: Yes TM's clear Eyes PERRL and EOMs intact bilaterally Neck no lymphadenopathy, supple and no JVD Resp normal respiratory effort and clear to auscultation bilaterally Cardio regular rate, regular rhythm and no murmurs GI normal to inspection, nondistended, normoactive bowel sounds and non-tender Palpation: soft Back/Spine no CVA tenderness and normal ROM Extremity normal to inspection General Extremety ED: Negative for edema General Extremity: Negative for edema Neuro oriented x3 and CN's II-XII intact bilaterally Sensorium / Orientation: alert Motor Exam: strength 5/5 throughout Psych mental status grossly normal Mood & Affect: Negative for depressed or tearful Skin no rashes or lesions noted and no wounds MDM MDM MDM Narrative Medical decision making narrative: White count 6.0. Urinalysis shows no overt i nfection. Creatinine 0.81. CT of the abdomen pelvis was obtained which shows mild diverticulitis of the sigmoid colon. There is no abscess or perforation is seen. Patient is allergic to penicillin and notes that she gets significant nausea with Flagyl. Therefore we can use moxifloxacin. She did he declines pain medication at this time. Follow-up with primary care 1 to 2 weeks return if worsening or concerns Lab Data Attestation: I reviewed the patient's lab results. Labs: Laboratory Results - last 24 hr 07/13/21 07/13/21 07/13/21 13:20 13:20 13:20 WBC 6.0 RBC 4.87 Hgb 12.3 Hct 39.2 MCV 80.5 L MCH 25.3 L MCHC 31.4 L RDW Std Deviation 47.4 H RDW Coeff of Urvashi 16.2 H Plt Count 231 MPV 10.8 Immature Gran % (Auto) 0.200 Neut % (Auto) 69.2 Lymph % (Auto) 23.1 [place] % (Auto) 5.3 Eos % (Auto) 1.7 Baso % (Auto) 0.5 Absolute Neuts (auto) 4.2 Absolute Lymphs (auto) 1.39 Nucleated RBC % 0 Sodium 138 Potassium 3.9 Chloride 105 Carbon Dioxide 27.0 Anion Gap 6 BUN 10 Creatinine 0.81 Estim Creat Clear Calc 82.60 Est GFR (MDRD) Af Amer 97 Est GFR (MDRD) Non-Af 81 BUN/Creatinine Ratio 12.4 Glucose 109 H Calcium 9.1 Total Bilirubin 0.30 AST 10 L ALT 19 Alkaline Phosphatase 92 Total Protein 7.4 Albumin 3.5 Globulin 3.9 Albumin/Globulin Ratio 0.9 Urine Color Yellow Urine Clarity Clear Urine pH 6.5 Ur Specific [place] 1.010 Urine Protein Negative Urine Glucose (UA) Normal Urine Ketones Negative Urine Occult Blood Negative Urine Nitrite Negative Urine Bilirubin Negative Urine Urobilinogen Normal Ur Leukocyte Esterase Negative Urine RBC 0 SEEN Urine WBC 0 SEEN Ur Squamous Epith Cells 0-5 SEEN Urine Bacteria 1+ Urine Mucus 0 SEEN Radiography Diagnostic Testing: Clinical Impression(s) from Imaging Studies Abdomen/Pelvis CT 07/13/21 13:10 IMPRESSION: Findings suggest mild diverticulitis sigmoid colon. Electronically Signed: Jj Petty MD at 14:05 EST Tel , Service support , Discharge Plan Triage Chief Complaint: Abd Pain ED Provider: Olvin Helm Dx/Rx/DC Orders Clinical Impression: Diverticulitis, Abdominal pain Instructions: ED Diverticulitis Prescriptions: New moxifloxacin 400 mg tablet 400 mg PO DAILY 10 Days Qty: 10 RF: 0 No Action sertraline 100 MG tablet 100 mg PO DAILY RF: 0 ibuprofen 800 MG tablet 800 mg PO TID PRN PRN (Reason: Pain) Qty: 40 RF: 1 sucralfate 1 GM tablet 1 gm PO 4X/DAY Qty: 120 RF: 0 esomeprazole magnesium 40 mg capsule,delayed release(DR/EC) 40 mg PO BID Qty: 60 RF: 2 Primary Care Provider: Aria Pina Referrals: Aria Pina DO [Primary Care Provider] - 1-2 Weeks Disposition Disposition: Home, Self Care
[2021-07-13 13:32] LABS: Mucous, Urine 0 SEEN /hpf (<or=2+); Red Blood Cells-Urine 0 SEEN /hpf (0-5); White Blood Cells 0 SEEN /hpf (0-5)
[2021-07-13 13:33] LABS: Absolute Lymphocyte Count 1.39 X10^3/uL (0.83-4.51); Absolute Neutrophil Count 4.2 X10^3/uL (2.0-7.7); Basophil# 0.03 X10^3/uL; Basophil% 0.5 % (0-1); Eosinophils% 1.7 % (0-5); Hematocrit 39.2 % (37-47); Hemoglobin 12.3 g/dL (12.0-15.0); Lymphocyte # 1.39 X10^3/ul (0.83-4.51); Lymphocyte % 23.1 % (19-41); Mean Corp Hgb Conc 31.4 g/dL (32-36); Mean Corpuscular Hgb 25.3 pg (27.0-32.0); Mean Corpuscular Volume 80.5 fL (81-99); Mean Platelet Vol. 10.8 fl (6.2-12.0); Monocyte# 0.32 X10^3/uL; Monocyte% 5.3 % (0-10); NRBC Flagged by Analyzer 0 % (0-5); Neutrophil # 4.16 X10^3/uL (2.7-7.7); Neutrophil % 69.2 % (47-70); Platelet Count 231 K/mm3 (150-450); RBC Distribution Width CV 16.2 % (11.6-14.6); RBC Distribution Width SD 47.4 fl (35.1-43.9); Red Blood Count 4.87 M/mm3 (4.2-5.4)
[2021-07-13 13:45] LABS: Color, Urine Yellow (Yellow); Glucose, Dipstick Normal (Normal); Ketone-Dipstick Negative (Negative); Leukocyte Esterase-Dipstick Negative /ul (Negative); Nitrite-Dipstick Negative (Negative); Occult Blood-Urine Negative /ul (Negative); Protein-Dipstick Negative (Negative); Urine Bilirubin Dipstick Negative (Negative); Urine Clarity Clear (Clear); Urine Urobilinogen Normal (Normal); Urine pH 6.5 (5.0 - 8.0)
[2021-07-13 13:50] LABS: ALB/GLOB Ratio 0.9 RATIO (0.9-2.4); AST(SGOT) 10 U/L (15-37); Alanine Aminotransfer ALT/SGPT 19 U/L (13-56); Albumin, Serum 3.5 g/dL (3.2-5.0); Alkaline Phosphatase 92 U/L (45-117); Anion Gap 6 (5-15); BUN 10 mg/dL (7-18); BUN/Creat Ratio 12.4 RATIO (10-20); Calcium,Total 9.1 mg/dL (8.5-10.1); Chloride 105 mmol/L (98-107); Creatinine, Serum 0.81 mg/dL (0.55-1.02); EST Glomerular Filtration Rate 81 mL/min (>60); Est Glom Filt Rate - Afr Amer 97 mL/min (>60); Globulin 3.9 g/dL (2.2-4.2); Glucose 109 mg/dL (74-106); Potassium 3.9 mmol/L (3.5-5.1); Protein, Total 7.4 g/dL (6.4-8.2); Sodium Level 138 mmol/L (136-145)
[2021-07-13 13:54] LABS: Bacteria 1+ /hpf (None Seen); Squamous Epithelial Cells - UA 0-5 SEEN /hpf (5-10)
[2021-07-13 14:28] VITALS: BP 136/95; PULSE 70; RESP 16; O2SAT 98
== END 2021-07-13 14:28 | disposition home or self-care (01) ==
LOC: ED 13:12
PROVIDERS: Emergency Provider Emergency Medicine; PCP Family Medicine
DX: K57.32 Diverticulitis of large intestine without perforation or abscess without bleeding (principal); F17.210 Nicotine dependence, cigarettes, uncomplicated; Z90.49 Acquired absence of other specified parts of digestive tract; Z90.710 Acquired absence of both cervix and uterus
CPT/HCPCS: 74176; 80053; 81001; 85025; 99283; A4216

== ENCOUNTER → 2021-12-23 | Outpatient (CLI) | payer OTHER, SELFPAY ==
--- NOTE | 2021-12-23 07:09 | BI_ITS ---
MAMMOGRAPHY - BILATERAL SCREENING REASON FOR EXAM: Female, 50 years old. Routine annual screening examination. PERTINENT HISTORY: Mother with breast cancer. TECHNIQUE: Digital bilateral breast kodi (3D mammographic acquisition) in the CC and MLO projections. 2-D mediolateral oblique (MLO) and craniocaudad (CC) views of both breasts were obtained. CAD: Full Field Digital Mammography with Computer Added Detection was performed. COMPARISON: Comparison is made with prior study dated 10/14/2020 and 09/11/2019. FINDINGS: Breast Composition: There are scattered areas of fibroglandular density. There are no dominant masses or suspicious calcifications. A tissue clip marker is once again seen in the deep inferior slightly medial aspect of the right breast. Stable small benign-appearing bilateral axillary lymph nodes. No other significant abnormalities are identified. There has been no significant change since the prior study. BI/SCRN MAMM (CAD)W/KODI BILAT IMPRESSION: Stable bilateral screening mammogram. Yearly follow-up mammogram recommended. (A) ASSESSMENT CATEGORY: BIRADS Category 2: Benign. A letter regarding these results will be sent to the patient by the facility within 30 days. Approximately 10% of breast cancers are not detected by mammography. A normal mammogram should not delay biopsy of a clinically suspicious abnormality. [id number] Electronically Signed: Mayur Lopes MD at 8:29 EDT ,
== END | disposition home or self-care (01) ==
LOC: OPBI 07:08
PROVIDERS: PCP Family Medicine; Visit Provider Family Medicine
DX: Z12.31 Encounter for screening mammogram for malignant neoplasm of breast (principal); Z80.3 Family history of malignant neoplasm of breast
CPT/HCPCS: 77063; 77067

== ENCOUNTER → 2022-01-01 | Outpatient (CLI) | payer OTHER, SELFPAY ==
[2022-01-01 10:10] LABS: Progesterone Level 0.46 ng/mL (See Comment)
[2022-01-01 10:17] LABS: AST(SGOT) 11 U/L (15-37); Alanine Aminotransfer ALT/SGPT 21 U/L (13-56); Albumin, Serum 3.7 g/dL (3.2-5.0); Alkaline Phosphatase 82 U/L (45-117); Anion Gap 5 (5-15); BUN 13 mg/dL (7-18); BUN/Creat Ratio 14.3 RATIO (10-20); Calcium,Total 9.1 mg/dL (8.5-10.1); Chloride 106 mmol/L (98-107); Creatinine, Serum 0.91 mg/dL (0.55-1.02); EST Glomerular Filtration Rate 70 mL/min (>60); Est Glom Filt Rate - Afr Amer 85 mL/min (>60); Estradiol 20.1 pg/mL; Globulin 3.8 g/dL (2.2-4.2); Glucose 104 mg/dL (74-106); Protein, Total 7.5 g/dL (6.4-8.2); Sodium Level 138 mmol/L (136-145); T4 Free Direct 0.81 ng/dL (0.76-1.46); Thyroid Stim Hormone (TSH) 2.29 uIU/mL (0.358-3.74)
== END | disposition home or self-care (01) ==
LOC: LAB 09:03
PROVIDERS: PCP Family Medicine; Referring Provider Family Medicine; Visit Provider Family Medicine
DX: E34.9 Endocrine disorder, unspecified (principal)
CPT/HCPCS: 36415; 80053; 82670; 84144; 84403; 84439; 84443

== ENCOUNTER → 2022-04-13 | Outpatient (CLI) | payer OTHER, SELFPAY ==
[2022-04-13 17:18] LABS: AST(SGOT) 11 U/L (15-37); Alanine Aminotransfer ALT/SGPT 19 U/L (13-56); Albumin, Serum 3.6 g/dL (3.2-5.0); Alkaline Phosphatase 92 U/L (45-117); Bilirubin, Direct 0.08 mg/dL (0.00-0.30); Globulin 3.6 g/dL (2.2-4.2); Protein, Total 7.2 g/dL (6.4-8.2)
[2022-04-15 16:09] LABS: Endomysial Antibody IgA Negative (Negative)
[2022-04-16 17:39] LABS: Immunoglobulin A 300 mg/dL (87-352); t-Transglutaminase IgA <2 U/mL (0-3)
== END | disposition home or self-care (01) ==
LOC: LAB 16:32
PROVIDERS: PCP Family Medicine; Visit Provider Family Medicine
DX: R19.7 Diarrhea, unspecified (principal)
CPT/HCPCS: 36415; 80076; 82784; 83516; 86255

== ENCOUNTER 2022-11-22 09:02 | Day surgery (SDC) | payer OTHER, SELFPAY ==
[2022-11-22] VITALS (7 sets, daily range): BP systolic 91–133; BP diastolic 49–86; PULSE 51–63; RESP 16; TEMP 36.1–37.3; O2SAT 95–100; BMI 30.7
--- NOTE | 2022-11-22 | IMM_PTH ---
PATIENT: FISH VELASQUEZ LOC: EN U#:[id number] AGE/SX: 51/F ROOM: RE11/22/[address]: Dr. Luann Ibarra MD : 1970 BED: DIS: 11/22/2022 SPEC #: [id number] RECD: 11/23/22 13:39 STATUS: EBONY REQ #: [id number] JENNIFFER: 11/22/22 00:[address]: Luann Ibarra DEPT: IMMUNOHISTOCHEMISTRY RECD BY: Sadie Schultz ENTERED: 11/23/22 13:40 SP TYPE: IMMUNO OTHR DR: Dr. Aria Pina, DO Tissues: A - Stomach, NOS Procedures: H Pylori (initial) PHYSICIAN & INSTITUTION [place] [address] SPECIMEN INFORMATION: Tissue Source: A ? Antrum biopsy Clinical Info: History of diverticulitis of colon and Dietrich?s esophagus; GERD Specimen Number: [id number] CPT code: 74825 METHODOLOGY: Deparaffinized sections of prefer/formalin-fixed tissue or PAP/DQ stained slides are incubated with monoclonal/polyclonal antibodies/oligonucleotide probes. Localization is made via biotin free immunoperoxidase method. Appropriate controls are performed and reacted as expected. Results on target cell population are indicated in the following table: RESULTS: ANTIBODY / CLONE RESULT Block A H Pylori (polyclonal) negative These tests were developed and their performance characteristics determined by [facility]. They may not have been cleared or approved by the U.S. Food and Drug Administration. The FDA has determined that such clearance or approval is not necessary. The above immunohistochemical/dualISH markers are ordered and reviewed by the Pathologist. INTERPRETATION: A. Antrum, biopsy: Negative for Helicobacter pylori organisms. SJ:blas 11/24/2022
[2022-11-22] MEDS: Lactated Ringers 1,000 ML 15 ML IV (09:39)
[2022-11-22 10:01] LABS: Bedside Glucose 100 mg/dL (74-106)
--- NOTE | 2022-11-22 10:08 | PCM.HP.BLA ---
History and Physical Date of Admission: 11/22/22 Date of Service:? 11/02/22 MR#: [id number] Acct: [id number] Name:FISH WADE Rep #: [id number] : 1970 ? ? Provider: Dr. Luann Ibarra MD Age/Sex:? 51/F ? ? Location: [facility] Status: Signed Intake Vital Signs ? 07/13/2112:23 11/03/2307:38 Height 5 ft 7 in 5 ft 7 in Weight: ? 206 lb 2 oz BMI ? 32.3 BP ? 114/81 H Blood Pressure Location ? Rt radial Position ? Sitting Respiration ? 16 Pulse ? 68 Pulse Source ? Monitor Pulse Oximetry (%) ? 98 Oxygen Delivery Method ? room air Intake Visit Reasons:?RECALL LETTER- EGD Chief Complaint: Recall-EGD Snowboarder Required: No Is patient in pain?: No Allergies Iodine and Iodide Containing Produc Allergy (Mild, Verified 11/02/22 08:40) Hiveserythromycin base Allergy (Verified 11/02/22 08:40) Shortness of breathPenicillins Allergy (Verified 11/02/22 08:40) Shortness of breathmidazolam [From Versed] Adverse Reaction (Mild, Verified 11/02/22 08:40) Nausea/Vom/Diarrheaiodine Adverse Reaction (Verified 11/02/22 08:40) Hives Medications sertraline 100 mg tablet 100 mg PO DAILY 12/17/14 [History Confirmed 11/02/22] ibuprofen 800 mg tablet 800 mg PO TID PRN PRN Pain #40 tabs 01/13/18 [Rx Confirmed 11/02/22] esomeprazole magnesium 40 mg capsule,delayed release 40 mg PO BID #60 caps 09/04/18 [Rx Confirmed 11/02/22] sucralfate 1 gram tablet 1 g PO 4X/DAY #120 tabs 10/15/20 [Rx Confirmed 11/02/22] moxifloxacin 400 mg tablet 400 mg PO DAILY 10 days #10 tabs 07/13/21 [Rx] cholecalciferol (vitamin D3) 50 mcg (2,000 unit) capsule 50 mcg PO DAILY 11/02/22 [History Confirmed 11/02/22] esomeprazole magnesium 40 mg capsule,delayed release (Nexium) 40 mg PO DAILY 11/02/22 [History Confirmed 11/02/22] mecobalamin (vitamin B12) 1,000 mcg chewable tablet 1,000 mcg PO DAILY 11/02/22 [History Confirmed 11/02/22] PFSH Medical History?(Updated 11/03/22 @ 08:[address] Luann Ibarra MD) Depression GERD (gastroesophageal reflux disease) History of Dietrich's esophagus Surgical History? History of esophagogastroduodenoscopy (EGD) S/P colonoscopy S/P hysterectomy S/P laparoscopic cholecystectomy S/P tonsillectomy and adenoidectomy Family History?(Updated 11/02/22 @ 08:37 by Estee Estevez) Mother Breast cancer Hypertension High cholesterol OsteoporosisFather Diabetes Hypertension High cholesterol Kidney disease Thyroid disorderSon AsthmaDaughter Thyroid disorder Social History?(Updated 11/02/22 @ 08:38 by Estee Estevez) Smoking Status:? Current every day smoker alcohol intake:? current diet:? Weight Watchers HPI HPI HPI: 51-year-old female presents for EGD and colonoscopy.? Patient does have a history of Dietrich's.? Patient has been on brand-name Nexium which she buys [id number] 40 mg daily.? Patient is currently on weight watchers and changing her diet states that this has improved the reflux she was having.? Patient states that her symptoms can include reflux into her mouth which that has improved she can get some lower chest/epigastric discomfort with spicy foods.? Patient also states that bread can feel like it gets stuck in the lower esophagus but typically does go down.? Patient states she goes between constipation and diarrhea as far as bowel movements.? Patient states she will be constipated for 5 days unsure how much fiber she gets in her diet.? Patient states her dad just recently had a colonoscopy which had a biopsy by Dr. Diana as there was a narrowing question because of narrowing.? Patient's last colonoscopy was 7 to 8 years ago negative per patient.? Patient states she has had diverticulitis twice since then the last 1 was about 8 months ago.? Currently patient denies any abdominal pain.? Patient's last EGD was 10/15/2020 for surveillance for Dietrich's. ROS General General: Yes weight change and fatigue; No appetite, colon cancer, breast cancer or weakness HEENT HEENT: No difficulty swallowing, eye injury, eye surgery, swollen glands or hoarseness Endo Endocrine: No thyroid disease, diabetes mellitus, thyroid cancer, Hair loss, heat intolerance or cold intolerance Skin Skin: No rash or changing moles Breast Breast: No left breast lump, right breast lump, nipple discharge, breast pain, abnormal mammogram, abnormal US or breast enlargement Musc Musculoskeletal: Yes back problems; No arthritis, rheumatoid arthritis, gout or joint pain Cardio Cardiovascular: No murmur, pacemaker, heart disease, atrial fibrillation, high blood pressure, heart attack, heart stent, palpitations, shortness of breat with exertion or chest pain Psych Psychiatric: Yes depression and anxiety; No hearing voices Resp Respiratory: No shortness of breath, Yes sleep apnea, No cough, No COPD, No asthma, No emphysema and No wheezing Gastro Gastrointestinal: Yes abdominal pain, Yes nausea or vomiting, Yes diarrhea, Yes constipation, No blood in stool, Yes acid reflux, No hemorrhoids, No ulcers, No gallbladder problem and No black,tarry stools Jagdish Hematologic: No blood thinners, No blood disorders, No bleeding, No anemia and No blood clots Neuro Neurologic: No system reviewed and no additional complaints, except as documented, No as per HPI, No abnormal gait, No abnormal hearing, No abnormal movements, No abnormal speech, No behavioral changes, No burning sensations, No confusion, No convulsions, No disequilibrium, No dizziness, No localized weakness, No frequent falls, No headache(s), No lack of coordination, No loss of vision, No memory loss, No numbness, No other visual disturbances, No radicular pain, No restless legs, No sensory deficit, No syncope, No tingling, No tremor(s), No weakness and No other Exam Const General: cooperative, healthy appearing and no acute distress [facility] Head: normal to inspection Resp Effort & Inspection: normal respiratory effort Cardio Rate: regular rate GI Inspection: non-distended Palpation: soft, no guarding and nontender Skin General: no rashes or lesions noted Neuro General: patient oriented x3 Extrem General: no clubbing, cyanosis or edema Psych Affect: normal affect Assessment and Plan Assessment and Plan (1) Hx of diverticulitis of colon: ?Status:?Acute (2) History of Dietrich's esophagus: ?Status:?Acute (3) GERD (gastroesophageal reflux disease): ?Status:?Acute Plan Did discuss with patient that her cycle of constipation and diarrhea may be all due to her constipation.? Recommend increasing her fiber in her diet and making sure to take plenty of water as well. I have discussed the above with the patient. I have offered the patient EGD & colonoscopy for evaluation. I have explained the risks/benefits of the procedure and described the procedure.? I have discussed the risks with the patient, including but not limited to:? infection, bleeding, perforation of the GI tract requiring emergency surgery, inability to complete the procedure, injury to any internal organs, complications of anesthesia, etc. - the patient understands and agrees to proceed. I have answered all the patient's questions to the patient's satisfaction and the patient has no further questions. The patient has been given instructions for the colon cleansing preparation.? 2-day prep with Dulcolax the first day and the Dulcolax/MiraLAX split prep the second day. Luann Ibarra M.D. Pager: [phone] [facility] [address] [place] [address], [address] [place] [address] Office: [phone] Coding Level of Care Code Off vis,est,level 4 Diagnoses Hx of diverticulitis of colon? Z87.19 History of Dietrich's esophagus? Z87.19 GERD (gastroesophageal reflux disease)? K21.9 11/03/22 0828 <Electronically signed by Luann Ibarra MD> Date Luann Ibarra MD
--- NOTE | 2022-11-22 10:30 | EGD_PTH ---
PATIENT: FISH VELASQUEZ LOC: EN U#:[id number] AGE/SX: 51/F ROOM: RE11/22/[address]: Dr. Luann Ibarra MD : 1970 BED: DIS: 11/22/2022 SPEC #: [id number] RECD: 11/22/22 14:22 STATUS: EBONY STEVE #: [id number] JENNIFFER: 11/22/22 10:[address]: Luann Ibarra DEPT: SURGICAL PATHOLOGY RECD BY: Nanda Lomax ENTERED: 11/23/22 07:57 SP TYPE: EGD BIOPSY OT DR: Dr. Aria Pina, DO Tissues: A - Gastric mucous membrane B - Gastric mucous membrane C - Stomach, NOS Procedures: Special Stain Group II Surgery Specimen Level IV Alcian Blue/PAS (control) HEADER OPERATION: Colonoscopy, EGD (MAC), biopsy, polypectomy PRE-OP DIAGNOSIS: History of diverticulitis of colon and Dietrich?s esophagus, GERD TISSUE SUBMITTED: A ? Antrum biopsy for H. pylori and histology, B ? Gastric polyps, C - Gastroesophageal junction biopsy MICROSCOPIC DIAGNOSIS A. Antrum, biopsy: Mild gastritis. See microscopic description and comment. B. Gastric polyps, polypectomy: Fragments of fundic gland polyp. C. Gastroesophageal junction, biopsy: Fragments of gastroesophageal mucosa with moderate chronic inflammation. Intestinal metaplasia (goblet cell metaplasia) not identified. See comment. SJ:blas 11/24/2022 COMMENT A. The results of immunohistochemistry for Helicobacter pylori will be reported separately ([id number]). C. Alcian blue/PAS stain with matched control is used in the evaluation of the specimen. MICROSCOPIC DESCRIPTION Slides are reviewed. A. The specimen shows fragments of gastric mucosa with chronic inflammatory cell infiltrates in the lamina propria consisting of lymphocytes and plasma cells, consistent with mild chronic gastritis. GROSS DESCRIPTION A - Received in fixative is one container labeled with the patient's name and designated antrum biopsy. The specimen consists of one irregular fragment of light faye soft tissue that measures 0.7 x 0.3 x 0.1 cm. The specimen is totally submitted in one cassette. B - Received in fixative is one container labeled with the patient's name and designated gastric polyps. The specimen consists of multiple polypoid fragments of faye-pink soft tissue that in aggregate measure 3.5 x 3.0 x 1.0 cm and 0.5 to 1 cm in greatest dimension. Many of the larger polyps are bisected. The entire specimen is submitted in three cassettes. C - Received in fixative is one container labeled with the patient's name and designated GE junction biopsy. The specimen consists of multiple irregular fragments of light faye soft tissue that in aggregate measure 1.0 x 0.2 x 0.1 cm. The specimen is totally submitted in one cassette. / SJ:rg 11/23/2022 TC:5 CPT: 49989 x3, 90739
--- NOTE | 2022-11-22 11:58 | OP.CCLET_ITS ---
11/22/2022 Aria Pina [address] [facility] [place] [address] Re : Upper GI endoscopy procedure for Sara Snyder Dear Dr. Pina This procedure was performed on Tuesday, November 22, 2022. My impressions and recommendations are as follows: Impressions : - Z-line irregular, 35 cm from the incisors. Biopsied. - 4 cm hiatal hernia. - Multiple gastric polyps. Resected and retrieved. - Normal examined duodenum. - Erythematous mucosa in the antrum. Biopsied. Recommendations : - Await pathology results. - Repeat upper endoscopy 2-3 years for surveillance. - Discharge patient to home. - Resume previous diet. - Continue present medications. My findings are described in the full procedure note, which is enclosed. If I can be of further assistance, please feel free to contact me at Doctor phone number(s): , Work: . Sincerely, MD Luann Carney MD 11/22/2022 11:58:04 AM This report has been signed electronically.
--- NOTE | 2022-11-22 11:58 | OP.EGD_ITS ---
Patient Name: Sara Snyder Procedure Date: 11/22/2022 10:56 AM Date of : 1970 Age: 51 Procedure: Upper GI endoscopy Indications: Follow-up of Dietrich's esophagus Providers: Luann Ibarra MD Medicines: Monitored Anesthesia Care Patient Profile: This is a 51 year old female. Complications: No immediate complications. Procedure: Pre-Anesthesia Assessment: - Prior to the procedure, a History and Physical was performed, and patient medications and allergies were reviewed. The patient's tolerance of previous anesthesia was also reviewed. The risks and benefits of the procedure and the sedation options and risks were discussed with the patient. All questions were answered, and informed consent was obtained. Prior Anticoagulants: The patient has taken no previous anticoagulant or antiplatelet agents. ASA Grade Assessment: Per anesthesia. After reviewing the risks and benefits, the patient was deemed in satisfactory condition to undergo the procedure. After obtaining informed consent, the endoscope was passed under direct vision. Throughout the procedure, the patient's blood pressure, pulse, and oxygen saturations were monitored continuously. The pediatric colonoscope was introduced through the mouth, and advanced to the second part of duodenum. The upper GI endoscopy was accomplished without difficulty. The patient tolerated the procedure well. Scope In: 11:04:07 AM Scope Out: 11:28:23 AM Total Procedure Duration Time 0 hours 24 minutes 16 seconds Findings: The Z-line was irregular and was found 35 cm from the incisors. Biopsies were taken with a cold forceps for histology. A 4 cm hiatal hernia was present. Multiple 2 to 7 mm pedunculated and sessile polyps with no bleeding and no stigmata of recent bleeding were found in the gastric body. These polyps were removed with a hot snare. Resection and retrieval were complete. The examined duodenum was normal. Mildly erythematous mucosa without bleeding was found in the gastric antrum. Biopsies were taken with a cold forceps for histology. Biopsies were taken with a cold forceps for Helicobacter pylori cultures. Impression: - Z-line irregular, 35 cm from the incisors. Biopsied. - 4 cm hiatal hernia. - Multiple gastric polyps. Resected and retrieved. - Normal examined duodenum. - Erythematous mucosa in the antrum. Biopsied. Recommendation: - Await pathology results. - Repeat upper endoscopy 2-3 years for surveillance. - Discharge patient to home. - Resume previous diet. - Continue present medications. Procedure Code(s): --- Professional --- 68576, Esophagogastroduodenoscopy, flexible, transoral; with removal of tumor(s), polyp(s), or other lesion(s) by snare technique Diagnosis Code(s): --- Professional --- K22.8, Other specified diseases of esophagus K44.9, Diaphragmatic hernia without obstruction or gangrene K31.7, Polyp of stomach and duodenum K22.70, Dietrich's esophagus without dysplasia K31.89, Other diseases of stomach and duodenum CPT copyright 2017 [employer]. All rights reserved. The codes documented in this report are preliminary and upon clay products glazer review may be revised to meet current compliance requirements. MD Luann Carney MD 11/22/2022 11:58:04 AM This report has been signed electronically. Number of Addenda: 0 Note Initiated On: 11/22/2022 10:56 AM
--- NOTE | 2022-11-22 12:04 | OP.COLON_ITS ---
Patient Name: Sara Snyder Procedure Date: 11/22/2022 11:29 AM Date of : 1970 Age: 51 Procedure: Colonoscopy Indications: Follow-up of diverticulitis Providers: Luann Ibarra MD Medicines: Monitored Anesthesia Care Patient Profile: This is a 51 year old female. This is a 51 year old female. Last Colonoscopy: 7 years ago. Complications: No immediate complications. Procedure: Pre-Anesthesia Assessment: - Prior to the procedure, a History and Physical was performed, and patient medications and allergies were reviewed. The patient's tolerance of previous anesthesia was also reviewed. The risks and benefits of the procedure and the sedation options and risks were discussed with the patient. All questions were answered, and informed consent was obtained. Prior Anticoagulants: The patient has taken no previous anticoagulant or antiplatelet agents. ASA Grade Assessment: Per anesthesia. After reviewing the risks and benefits, the patient was deemed in satisfactory condition to undergo the procedure. After I obtained informed consent, the scope was passed under direct vision. Throughout the procedure, the patient's blood pressure, pulse, and oxygen saturations were monitored continuously. The pediatric colonoscope was introduced through the anus and advanced to the cecum, identified by the appendiceal orifice, IC valve and transillumination. The colonoscopy was technically difficult and complex due to a tortuous colon. Successful completion of the procedure was aided by applying abdominal pressure. Scope In: 11:30:09 AM Scope Withdrawal Time 0 hours 5 minutes 35 seconds Scope Out: 11:51:04 AM Total Procedure Duration Time 0 hours 20 minutes 55 seconds Findings: The perianal and digital rectal examinations were normal. The entire examined colon appeared normal on direct and retroflexion views. No diverticulosis seen on colonoscopy; however CT abd/pel reviewed and there are only a few seen on CT. Impression: - The entire examined colon is normal on direct and retroflexion views. - No specimens collected. Recommendation: - Discharge patient to home. - Resume previous diet. - Continue present medications. - Repeat colonoscopy in 10 years for screening purposes. Procedure Code(s): --- Professional --- 40362, Colonoscopy, flexible; diagnostic, including collection of specimen(s) by brushing or washing, when performed (separate procedure) Diagnosis Code(s): --- Professional --- K57.32, Diverticulitis of large intestine without perforation or abscess without bleeding CPT copyright 2017 [employer]. All rights reserved. The codes documented in this report are preliminary and upon warehouse packaging supervisor review may be revised to meet current compliance requirements. MD Luann Carney MD 11/22/2022 12:03:42 PM This report has been signed electronically. Number of Addenda: 0 Note Initiated On: 11/22/2022 11:29 AM
--- NOTE | 2022-11-22 12:05 | OP.CCLET_ITS ---
11/22/2022 Aria Pina [address] [place] [address] Re : Colonoscopy procedure for Sara Snyder Dear Dr. Pina This procedure was performed on Tuesday, November 22, 2022. My impressions and recommendations are as follows: Impressions : - The entire examined colon is normal on direct and retroflexion views. - No specimens collected. Recommendations : - Discharge patient to home. - Resume previous diet. - Continue present medications. - Repeat colonoscopy in 10 years for screening purposes. My findings are described in the full procedure note, which is enclosed. If I can be of further assistance, please feel free to contact me at Doctor phone number(s): , Work: . Sincerely, MD Luann Carney MD 11/22/2022 12:03:42 PM This report has been signed electronically.
== END 2022-11-22 12:44 | disposition home or self-care (01) ==
LOC: EN 09:05 → AC 09:06
PROVIDERS: PCP Family Medicine; Referring Provider Family Medicine; Visit Provider Surgery
PROC: 0DJD8ZZ Inspection of Lower Intestinal Tract, Via Natural or Artificial Opening Endoscopic (ICD-10-PCS; CPT 45378; principal; 2022-11-22 10:25)
DX: K22.70 Barrett's esophagus without dysplasia (principal); K31.7 Polyp of stomach and duodenum; K29.70 Gastritis, unspecified, without bleeding; K44.9 Diaphragmatic hernia without obstruction or gangrene; K22.89 Other specified disease of esophagus; K57.32 Diverticulitis of large intestine without perforation or abscess without bleeding; K21.9 Gastro-esophageal reflux disease without esophagitis; Z79.899 Other long term (current) drug therapy; Z87.891 Personal history of nicotine dependence
CPT/HCPCS: 43239; 43251; 45378; 82962; 88305; 88313; 88342; J7120; J2405

== ENCOUNTER → 2022-12-24 | Outpatient (CLI) | payer OTHER, SELFPAY ==
--- NOTE | 2022-12-24 06:59 | BI_ITS ---
MAMMOGRAPHY - BILATERAL SCREENING REASON FOR EXAM: Female, 51 years old. Routine annual screening examination. PERTINENT HISTORY: Mother with breast cancer. TECHNIQUE: Digital bilateral breast kodi (3D mammographic acquisition) in the CC and MLO projections. 2-D mediolateral oblique (MLO) and craniocaudad (CC) views of both breasts were obtained. CAD: Full Field Digital Mammography with Computer Added Detection was performed. COMPARISON: Comparison is made with prior study December 23, 2021 and October 14, 2020. FINDINGS: Breast Composition: There are scattered areas of fibroglandular density. There are no dominant masses or suspicious calcifications. Stable small benign-appearing bilateral axillary lymph nodes. The patient marker is once again seen in the deep inferior slightly medial aspect of the right breast No other significant abnormalities are identified. There has been no significant change since the prior study. BI/SCRN MAMM (CAD)W/KODI BILAT IMPRESSION: Stable bilateral screening mammogram. Yearly follow-up mammogram recommended. (A) ASSESSMENT CATEGORY: BIR ADS Category 2: Benign. A letter regarding these results will be sent to the patient by the facility within 30 days. Approximately 10% of breast cancers are not detected by mammography. A normal mammogram should not delay biopsy of a clinically suspicious abnormality. [id number] Electronically Signed: Mayur Lopes MD at 8:33 EDT ,
[2022-12-24 07:25] LABS: Absolute Lymphocyte Count 2.12 X10^3/uL (0.83-4.51); Absolute Neutrophil Count 3.4 X10^3/uL (2.0-7.7); Basophil# 0.03 X10^3/uL; Basophil% 0.5 % (0-1); Eosinophil# 0.09 X10^3/uL; Eosinophils% 1.5 % (0-5); Hematocrit 43.2 % (37-47); Hemoglobin 13.4 g/dL (12.0-15.0); Lymphocyte # 2.12 X10^3/ul (0.83-4.51); Mean Corpuscular Hgb 26.6 pg (27.0-32.0); Mean Corpuscular Volume 85.9 fL (81-99); Mean Platelet Vol. 11.1 fl (6.2-12.0); Monocyte# 0.38 X10^3/uL; Monocyte% 6.3 % (0-10); NRBC Flagged by Analyzer 0 % (0-5); Neutrophil # 3.41 X10^3/uL (2.7-7.7); Neutrophil % 56.4 % (47-70); Platelet Count 244 K/mm3 (150-450); RBC Distribution Width CV 14.5 % (11.6-14.6); Red Blood Count 5.03 M/mm3 (4.2-5.4); White Blood Count 6.1 K/mm3 (4.4-11.0)
[2022-12-24 07:57] LABS: Microalbumin,Random Urine 8.9 mg/L (NO RANGE EST.); Microalbumin:Creatinine Ratio 5.4 mg/g CRE (<30 mg/g CRE)
[2022-12-24 08:08] LABS: AST(SGOT) 13 U/L (15-37); Alanine Aminotransfer ALT/SGPT 28 U/L (13-56); Albumin, Serum 3.9 g/dL (3.2-5.0); Alkaline Phosphatase 93 U/L (45-117); Anion Gap 8 (5-15); BUN 19 mg/dL (7-18); BUN/Creat Ratio 18.6 RATIO (10-20); Calcium,Total 9.4 mg/dL (8.5-10.1); Chloride 106 mmol/L (98-107); Cholesterol 197 mg/dL (200); Creatinine, Serum 1.02 mg/dL (0.55-1.02); EST Glomerular Filtration Rate 61 mL/min (>60); Est Glom Filt Rate - Afr Amer 74 mL/min (>60); Glucose 96 mg/dL (74-106); High Density Lipoprotein 58 mg/dL; Potassium 3.8 mmol/L (3.5-5.1); Protein, Total 7.9 g/dL (6.4-8.2); Sodium Level 141 mmol/L (136-145); Triglycerides 102 mg/dL; Very Low Density Lipoprotein 20 mg/dL (5-40)
[2022-12-24 08:19] LABS: Hemoglobin A1c 5.4 % (3.8-5.6)
== END | disposition home or self-care (01) ==
PROVIDERS: PCP Family Medicine; Referring Provider Family Medicine; Visit Provider Family Medicine
DX: Z12.31 Encounter for screening mammogram for malignant neoplasm of breast (principal); E11.9 Type 2 diabetes mellitus without complications; Z51.81 Encounter for therapeutic drug level monitoring
CPT/HCPCS: 36415; 77063; 77067; 80053; 80061; 82043; 82570; 83036; 85025

== ENCOUNTER → 2023-07-25 | Outpatient (CLI) | payer OTHER, SELFPAY ==
[2023-07-25 18:04] LABS: Absolute Lymphocyte Count 1.69 X10^3/uL (0.83-4.51); Absolute Neutrophil Count 2.7 X10^3/uL (2.0-7.7); Basophil# 0.03 X10^3/uL; Basophil% 0.6 % (0-1); Eosinophils% 2.1 % (0-5); Hematocrit 41.3 % (37-47); Hemoglobin 13.2 g/dL (12.0-15.0); Lymphocyte # 1.69 X10^3/ul (0.83-4.51); Lymphocyte % 35.9 % (19-41); Mean Corpuscular Hgb 27.7 pg (27.0-32.0); Mean Corpuscular Volume 86.6 fL (81-99); Mean Platelet Vol. 11.1 fl (6.2-12.0); Monocyte# 0.22 X10^3/uL; Monocyte% 4.7 % (0-10); NRBC Flagged by Analyzer 0 % (0-5); Neutrophil # 2.65 X10^3/uL (2.7-7.7); Neutrophil % 56.3 % (47-70); Platelet Count 241 K/mm3 (150-450); RBC Distribution Width CV 14.4 % (11.6-14.6); RBC Distribution Width SD 45.4 fl (35.1-43.9); Red Blood Count 4.77 M/mm3 (4.2-5.4); White Blood Count 4.7 K/mm3 (4.4-11.0)
[2023-07-25 18:09] LABS: Vitamin B12 598 pg/mL (211-911); Vitamin D,25 Hydroxy 33.1 ng/mL
[2023-07-25 18:15] LABS: ALB/GLOB Ratio 1.1 RATIO (0.9-2.4); AST(SGOT) 11 U/L (15-37); Alanine Aminotransfer ALT/SGPT 29 U/L (13-56); Albumin, Serum 3.7 g/dL (3.2-5.0); Alkaline Phosphatase 77 U/L (45-117); Anion Gap 6 (5-15); BUN 17 mg/dL (7-18); CRP < 2.90 mg/L (0.0-3.0); Calcium,Total 8.8 mg/dL (8.5-10.1); Chloride 109 mmol/L (98-107); Creatinine, Serum 0.94 mg/dL (0.55-1.02); EST Glomerular Filtration Rate 67 mL/min (>60); Est Glom Filt Rate - Afr Amer 81 mL/min (>60); Globulin 3.5 g/dL (2.2-4.2); Glucose 116 mg/dL (74-106); Potassium 3.7 mmol/L (3.5-5.1); Protein, Total 7.2 g/dL (6.4-8.2); Sodium Level 140 mmol/L (136-145)
[2023-07-25 18:27] LABS: Erythrocyte Sedimentation Rate 4 mm/hr (0-30)
== END | disposition home or self-care (01) ==
LOC: BFHLAB 15:48
PROVIDERS: PCP Nurse Practitioner Family; Visit Provider Nurse Practitioner Family
DX: R10.11 Right upper quadrant pain (principal); R10.31 Right lower quadrant pain
CPT/HCPCS: 36415; 80053; 82306; 82607; 85025; 85652; 86140

== ENCOUNTER → 2023-07-28 | Outpatient (CLI) | payer OTHER, SELFPAY ==
--- NOTE | 2023-07-28 07:13 | US_ITS ---
STUDY: ABDOMINAL ULTRASOUND - RIGHT UPPER QUADRANT REASON FOR VISIT: Female, 52 years old RT SIDE ABDOMINAL PAIN TECHNIQUE: Ultrasound evaluation of the right upper quadrant was performed with real-time and static escudero-scale imaging. TECHNICAL QUALITY: Adequate. COMPARISON: None. FINDINGS: Liver: The liver is enlarged and measures 19.2 cm. There is increased echogenicity consistent with fatty infiltration. The bile ducts are within normal limits. There is hepatic color flow. The direction of portal flow is hepatopetal. There is no demonstrated mass lesion. Gallbladder: The patient is status post cholecystectomy. Common Bile Duct (C.B.D.): The common bile duct measures 7 mm. Pancreas: Normal size of the head, body and tail of the pancreas. There is normal echogenicity of the pancreas. There is no demonstrated pancreatic mass or cyst. Right Kidney: Normal size of the right kidney. The right kidney measures 11.7 cm x 5.3 cm x 4.7 cm. Normal renal cortex. The right cortex measures 1.7 cm. There is no demonstrated renal mass or cyst. There is no right hydronephrosis. US/Abdomen Limited IMPRESSION: Hepatomegaly and fatty infiltration of the liver. Status post cholecystectomy. Electronically Signed: Mayur Lopes MD at 13:26 EST ,
== END | disposition home or self-care (01) ==
LOC: US 07:12
PROVIDERS: PCP Nurse Practitioner Family; Referring Provider Nurse Practitioner Family; Visit Provider Nurse Practitioner Family
DX: R10.11 Right upper quadrant pain (principal); R10.31 Right lower quadrant pain
CPT/HCPCS: 76705

== ENCOUNTER → 2023-07-29 | Outpatient (CLI) | payer OTHER, SELFPAY ==
[2023-07-29 15:15] LABS: Hepatitis B Surface Antibody Reactive
[2023-07-31 09:07] LABS: HEPATITIS B SURFACE AG Negative (Negative); Hep C Antibodies Non Reactive (Non Reactive); Hepatitis A AB, Total Negative (Negative); Hepatitis A IgM Antibody Negative (Negative); Hepatitis B Core AB IgM Negative (Negative)
== END | disposition home or self-care (01) ==
LOC: LAB 13:48
PROVIDERS: PCP Nurse Practitioner Family; Referring Provider Nurse Practitioner Family; Visit Provider Nurse Practitioner Family
DX: R16.0 Hepatomegaly, not elsewhere classified (principal); R10.11 Right upper quadrant pain
CPT/HCPCS: 36415; 80074; 86706; 86708

== ENCOUNTER → 2023-09-05 | Outpatient (CLI) | payer OTHER, SELFPAY ==
--- NOTE | 2023-09-05 07:40 | US_ITS ---
STUDY: ABDOMINAL ULTRASOUND - ELASTOGRAPHY REASON FOR VISIT: Female, 52 years old. Fatty infiltration of the liver. TECHNIQUE: Liver stiffness measurements were obtained on a [employer] RS 85 ultrasound machine using a CA 1-7 probe following the U guidelines. 3 measurements were obtained using a 2-D-SWE method. TheIQR/M was 18% suggesting a quality data set. TECHNICAL QUALITY: Adequate. COMPARISON: Comparison is made with prior study dated July 28, 2023. FINDINGS: Liver: There is no demonstrated mass lesion. Median liver stiffness measured 8.9 kPa. Abdomen: There is no demonstrated mass lesion. US/Elastography Parenchyma/Organ IMPRESSION: Liver stiffness measures 8.9 kPa compatible with F2-F3 (Mild to moderate liver fibrosis) Metavir score. Electronically Signed: Mayur Lopes MD at 9:19 EST ,
--- OUTSIDE RECORDS SUMMARY | 2023-09-05 07:57 | XMS RPT_ITS | CCD ---
Author Name Unknown Address [address] [place] [address] Organization [facility] Results Test Name Value Interpretation Reference Range Facil ity Summary Purpose Family History No Family History Records Found Advance Directives No Advanced Directives Records Found Additional Source Comments INFORMATION SOURCE (unrecogn ized section and content) FOR RECORDS PERTAINING TO PATIENTS WHO ARE OR HAVE BEEN ENROLLED IN A CHEMICAL DEPENDENCY/SUBSTANCEABUSE PROGRAM, SOME INFORMATION MAY BE OMITTED. This clinical summary was aggregated from multiple sources. Caution should be exercised in using it in the provision of clinical care. This summary normalizes information from multiple sources, and as a consequence, information in this document may materially change the coding, format and clinical context of patient data. In addition, data may be omitted in some cases. CLINICAL DECISIONS SHOULD BE BASED ON THE PRIMARY CLINICAL RECORDS. [employer] provides no warranty or guarantee of the accuracy or completeness of information in this document.
== END | disposition home or self-care (01) ==
LOC: US 07:39
PROVIDERS: PCP Nurse Practitioner Family; Referring Provider Family Medicine; Visit Provider Family Medicine
DX: K76.0 Fatty (change of) liver, not elsewhere classified (principal); K74.00 Hepatic fibrosis, unspecified
CPT/HCPCS: 76981

== ENCOUNTER → 2024-03-08 | Outpatient (CLI) | payer OTHER, SELFPAY ==
--- NOTE | 2024-03-08 07:05 | BI_ITS ---
MAMMOGRAPHY - BILATERAL SCREENING REASON FOR EXAM: Female, 53 years old. Routine annual screening examination. PERTINENT HISTORY: Mother with breast cancer. History of prior right ultrasound-guided breast biopsy. TECHNIQUE: Digital bilateral breast kodi (3D mammographic acquisition) in the CC and MLO projections. 2-D mediolateral oblique (MLO) and craniocaudad (CC) views of both breasts were obtained. CAD: Full Field Digital Mammography with Computer Added Detection was performed. COMPARISON: Comparison is made with prior study of December 24, 2022 and December 23, 2021. FINDINGS: Breast Composition: There are scattered areas of fibroglandular density. There are no dominant masses or suspicious calcifications. A tissue clip marker is once again seen in the deep inferior slightly medial aspect of the right breast. Stable small benign-appearing bilateral axillary lymph nodes. No other significant abnormalities are identified. There has been no significant change since the prior study. BI/SCRN MAMM (CAD)W/KODI BILAT IMPRESSION: Stable bilateral screening mammogram. Yearly follow-up mammogram recommended. (A) ASSESSMENT CATEGORY: BIRADS Category 2: Benign. A letter regarding these results will be sent to the patient by the facility within 30 days. Approximately 10% of breast cancers are not detected by mammography. A normal mammogram should not delay biopsy of a clinically suspicious abnormality. [id number] Electronically Signed: Mayur Lopes MD at 9:52 EDT ,
== END | disposition home or self-care (01) ==
LOC: OPBI 07:04
PROVIDERS: PCP Nurse Practitioner Family; Visit Provider Family Medicine
DX: Z12.31 Encounter for screening mammogram for malignant neoplasm of breast (principal); Z80.3 Family history of malignant neoplasm of breast
CPT/HCPCS: 77063; 77067

== ENCOUNTER → 2024-06-01 | Outpatient (CLI) | payer OTHER, SELFPAY ==
--- NOTE | 2024-06-01 09:06 | US_ITS ---
STUDY: ABDOMINAL ULTRASOUND - RIGHT UPPER QUADRANT; ELASTOGRAPHY REASON FOR VISIT: Female, 53 years old. Fatty infiltration of the liver. TECHNIQUE: Ultrasound evaluation of the right upper quadrant was performed with real-time and static escudero-scale imaging. Point quantification shear wave elastography was performed (Mantis Dep[employer]). TECHNICAL QUALITY: Adequate. COMPARISON: None. FINDINGS: Liver: The liver measures 16.6 cm. There is increased echogenicity consistent with fatty infiltration. The bile ducts are within normal limits. There is hepatic color flow. The direction of portal flow is hepatopetal. There is no demonstrated mass lesion. Median liver stiffness measured 5.2 kPa. Gallbladder: The patient is status post cholecystectomy. Common Bile Duct (C.B.D.): The common bile duct is dilated and measures 10.7 mm. Pancreas: There is normal echogenicity of the visualized pancreas. There is no demonstrated pancreatic mass or cyst. Right Kidney: Normal size of the right kidney. The right kidney measures 12.4 cm x 5.5 cm x 4.1 cm. Normal renal cortex. The right cortex measures 1.1 cm. There is no demonstrated renal mass or cyst. There is no right hydronephrosis. US/ABD Limited w/ Elastography IMPRESSION: 1. Liver stiffness measures 5.2 kPa compatible with F0-F1 (Normal to mild liver fibrosis) Metavir score. 2. Fatty infiltration of the liver. Electronically Signed: Mayur Lopes MD at 15:51 EDT ,
== END | disposition home or self-care (01) ==
LOC: US 09:04
PROVIDERS: PCP Nurse Practitioner Family; Referring Provider Family Medicine; Visit Provider Family Medicine
DX: K76.0 Fatty (change of) liver, not elsewhere classified (principal)
CPT/HCPCS: 76705; 76981

== ENCOUNTER → 2025-03-18 | Outpatient (CLI) | payer OTHER, SELFPAY ==
--- NOTE | 2025-03-18 15:05 | BI_ITS ---
EXAM: SCRN MAMM (CAD)W/KODI BILAT DATE: 03/18/2025 CLINICAL HISTORY: F, Age 54 y/o , SCREENING TECHNIQUE: SCRN MAMM (CAD)W/KODI BILAT COMPARISON: Prior exams were compared FINDINGS: TISSUE DENSITY: The breasts are heterogeneously dense, which may obscure small masses. Bilateral Breast Mammographic Findings: No suspicious masses, calcifications or other abnormalities are identified. BI/SCRN MAMM (CAD)W/KODI BILAT IMPRESSION: No mammographic evidence of malignancy in either breast OVERALL FINAL ASSESSMENT BI-RADS 1: NEGATIVE. RECOMMENDATION: Routine annual follow-up in 1 Year A letter with findings and recommendations will be mailed to the patient. Reading Location: [id number]
== END | disposition home or self-care (01) ==
LOC: OPBI 15:04
PROVIDERS: PCP Family Medicine; Referring Provider Family Medicine; Visit Provider Family Medicine
DX: Z12.31 Encounter for screening mammogram for malignant neoplasm of breast (principal)
CPT/HCPCS: 77063; 77067

== ENCOUNTER → 2025-06-29 | Outpatient (CLI) | payer OTHER, SELFPAY ==
[2025-06-29 09:53] LABS: Hematocrit 41.1 % (37-47); Hemoglobin 13.7 g/dL (12.0-15.0); Mean Corp Hgb Conc 33.3 g/dL (32-36); Mean Corpuscular Volume 88.2 fL (81-99); Mean Platelet Vol. 10.2 fl (6.2-12.0); Platelet Count 214 K/mm3 (150-450); RBC Distribution Width CV 13.0 % (11.6-14.6); RBC Distribution Width SD 41.8 fl (35.1-43.9); Red Blood Count 4.66 M/mm3 (4.2-5.4); White Blood Count 4.5 K/mm3 (4.4-11.0)
[2025-06-29 10:51] LABS: AST(SGOT) 17 U/L (<=31); Alanine Aminotransfer ALT/SGPT 18 U/L (<=34); Albumin, Serum 4.2 g/dL (3.5-5.0); Alkaline Phosphatase 74 U/L (35-104); Anion Gap 8 (5-15); BUN 14 mg/dL (4-19); BUN/Creat Ratio 15.4 RATIO (10-20); Calcium,Total 9.6 mg/dL (7.6-11.0); Carbon Dioxide 26.6 mmol/L (21.0-32.0); Chloride 104 mmol/L (98-108); Cholesterol 208 mg/dL (<=200); Globulin 2.7 g/dL (2.2-4.2); Glucose 103 mg/dL (70-99); Low Density Lipoprotein Calc. 135 mg/dL; Potassium 4.5 mmol/L (3.3-5.1); Triglycerides 84 mg/dL; Very Low Density Lipoprotein 17 mg/dL (5-40); cholesterol:hdl ratio screen 3.56
== END | disposition home or self-care (01) ==
LOC: LAB 08:54
PROVIDERS: PCP Family Medicine; Referring Provider Family Medicine; Visit Provider Family Medicine
DX: Z13.1 Encounter for screening for diabetes mellitus (principal); Z13.220 Encounter for screening for lipoid disorders; E66.9 Obesity, unspecified; K76.0 Fatty (change of) liver, not elsewhere classified; Z78.0 Asymptomatic menopausal state
CPT/HCPCS: 36415; 80053; 80061; 83036; 84443; 85027